=== PATIENT | male | born 1945 | race Caucasian/White ===

== ENCOUNTER → 2017-02-19 | Outpatient (CLI) | payer OTHER, MEDICAID | LOC: FIMAGING 16:21 | PROVIDERS: ATTEND Family Medicine | DX: I82.431 Acute embolism and thrombosis of right popliteal vein (principal) ==

== ENCOUNTER → 2017-07-15 | Outpatient (CLI) | payer OTHER, MEDICAID | LOC: FIMAGING 14:59 | PROVIDERS: ATTEND Internal Medicine Hematology & Oncology | DX: Z13.6 Encounter for screening for cardiovascular disorders (principal) ==

== ENCOUNTER → 2017-07-23 | Outpatient (CLI) | payer OTHER, MEDICAID | LOC: BHFA 10:45 | PROVIDERS: ATTEND Internal Medicine Cardiovascular Disease | DX: I25.10 Atherosclerotic heart disease of native coronary artery without angina pectoris (principal); I50.9 Heart failure, unspecified; R60.9 Edema, unspecified ==

== ENCOUNTER → 2017-08-31 | Outpatient (CLI) | payer OTHER, MEDICAID | LOC: BHFA 13:00 | PROVIDERS: ATTEND Internal Medicine Cardiovascular Disease | DX: I25.10 Atherosclerotic heart disease of native coronary artery without angina pectoris (principal); I50.9 Heart failure, unspecified | CPT/HCPCS: 78452; 93017; A9500; J2785 ==

== ENCOUNTER 2017-09-21 12:13 | Inpatient (IN) | payer OTHER, MEDICAID ==
[2017-09-21] MEDS ORDERED: ASPIRIN EC 325 MG TAB PO ONE (12:27)
[2017-09-21] MEDS ORDERED: FAMOTIDINE 20 MG TAB PO ONE (12:27)
[2017-09-21] MEDS ORDERED: diphenhydrAMINE 25 MG CAP PO ONE (12:27)
[2017-09-21] MEDS ORDERED: DIAZEPAM 5 MG TAB PO ONE (12:27)
[2017-09-21] MEDS ORDERED: NS 1,000 ML IV ONE (12:27)
--- NOTE | 2017-09-21 12:50 | CPEKG ---
Heart Rate: 46 RR Interval: 1304 P-R Interval: 260 QRSD Interval: 176 QT Interval: 532 QTC Interval: 466 P [place]: -16 QRS [place]: -35 T Wave [place]: 146 EKG Severity - ABNORMAL ECG - EKG Impression: SINUS BRADYCARDIA EKG Impression: FIRST DEGREE AV BLOCK EKG Impression: LEFT BUNDLE BRANCH BLOCK Electronically Signed By: Maksim Bach 21-Sep-2017 15:00:00
[2017-09-21 13:14] LABS: INR 1.03 (0.83-1.16); PROTIME(PATIENT) 13.7 SEC (12.0-15.0)
[2017-09-21 13:32] LABS: PLATELET COUNT 118 10^3/uL (150-400)
--- NOTE | 2017-09-21 13:57 | PDPROPOC ---
Sedation Plan of Care Sedation Plan of Care: vital signs stable, mental status noted, patient educated of risks, benefits, alternatives, patient can tolerate sedation ASA Classification: ASA 2 Planned drugs: fentanyl, midazolam Mallampati Score: Class 1 Mallampati Reference Image: Patient passed 3-3-2 rule?: Yes
--- NOTE | 2017-09-21 13:59 | PDGENHP ---
History & Physical Chief Complaint: Cardiac catheterization History of Present Illness: 72-year-old male here for cardiac catheterization last performed by me many years ago. He is currently not experiencing chest pain shortness of breath PND orthopnea. Relevant Physical Exam: 130/70, 70,. No JVP. Chest is clear to auscultation percussion. Cardiac exam reveals a regular rate and rhythm. Abdomen is soft nontender with good bowel sounds. Extremities are free of edema. Radial pulses are +2 and equal. Neurological he is alert and oriented with normal mood and affect. No facial dissymmetry. Skin no rash. Cardiorespiratory Assessment: No contraindications to cardiac catheterization identified today. Plan for diagnostic procedure. Right radial artery approach. Risks and benefits were discussed will proceed.
[2017-09-21] MEDS ORDERED: LIDOCAINE 1% 300 MG/30 ML SDV ONE (14:36)
[2017-09-21] MEDS ORDERED: ATROPINE SULFATE 1 MG/10 ML SYR ONE (14:37)
[2017-09-21] MEDS ORDERED: HEPARIN 10,000 UNIT/10 ML MDV (1,000 UNIT/ML) ONE (14:37)
[2017-09-21] MEDS ORDERED: MIDAZOLAM 2 MG/2 ML VIAL ONE (14:37)
[2017-09-21] MEDS ORDERED: IOPAMIDOL (ISOVUE-370) 150 ML BTL IV ONE (14:37)
[2017-09-21] MEDS ORDERED: fentaNYL 100 MCG/2 ML INJ ONE (14:37)
[2017-09-21] MEDS ORDERED: VERAPAMIL 5 MG/2 ML VIAL ONE (14:37)
[2017-09-21] MEDS ORDERED: NITROGLYCERIN 0.4 MG BTL SL PRN (15:03)
--- NOTE | 2017-09-21 15:09 | PDDXCAT ---
Diagnostic Cath Note - . Date: 09/21/17 Methods Analyst: Barak High-risk criteria on non-invasive testing: severe resting left ventricular dysfunction (LVEF<35%) - Procedure Access: right wrist Procedure: left heart catheterization, coronary angiography, left ventriculogram - Materials Left Heart Cath size: 5F Left Heart Cath materials: JL4.0, pigtail, other (Snyder 4) - Findings-Left Heart Catheterization LM: Calcified but unobstructed LAD: Diffuse atheroma the proximal vessel with a widely patent prior stent. 90 % stenosis after the principal diagonal overall long distance. 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 RCA: Dominant: Proximal stent widely patent. 10% stenosis after the stent. Ramus: 90% ostial stenosis. EDP: 10 mm of mercury LVEF: 20% with global hypokinesis more pronounced in the anterior apical segments Complications: None Estimated blood loss: <50ml Closure method: TR Band Assessment: Severe LAD, proximal ramus stenosis associated with severe LV dysfunction EF of 20%. Widely patent RCA stent. Plan: Surgical consultation for coronary artery bypass grafting in the setting of proximal ramus disease, LAD disease associated with severe LV dysfunction. Considerations for high risk PCI of turned down for surgery. Would consider rotational atherectomy of the proximal ramus and LAD. Patient Problems: Problems Problem Status Onset Osteoarthritis of knee Acute
[2017-09-21] MEDS: ESCITALOPRAM OXALATE 10 MG TAB PO SCH (20:38)
[2017-09-21] MEDS: CARVEDILOL 25 MG TAB PO SCH (20:39)
[2017-09-21] MEDS: LISINOPRIL 10 MG TAB PO SCH (20:39)
[2017-09-21] MEDS ORDERED: NON-FORMULARY NEW DRUG (Escitalopram Oxalate [Lexapro] 20 MG) PO SCH (21:00)
[2017-09-21] MEDS ORDERED: CLOPIDOGREL BISULFATE 75 MG TAB PO SCH (21:00)
[2017-09-21] MEDS ORDERED: ATORVASTATIN CALCIUM 40 MG TAB PO SCH (21:00)
[2017-09-22] MEDS: LEVOTHYROXINE 75 MCG TAB PO SCH (05:34)
--- NOTE | 2017-09-22 09:10 | ASMTCASEMG ---
Living Arrangements What is your living Answers: Alone arrangement? Who do you live with? Type Of Residence What kind of residence do Answers: Apartment you live in? Discharge Plan Comments Coordination Status Comments Notes: Pt is a 72 y/o man admitted for a cardiac cath. Pt will most likely d/c independent when medically stable. No therapies ordered at this time. Pt may have outpatient cardiac rehab. CM available for changes. Plan: Independent Date Signed: 09/22/2017 09:10 AM Electronically Signed By:CONOR Lakrin
[2017-09-22] MEDS: CARVEDILOL 25 MG TAB PO SCH ×2 (09:29→17:32)
--- NOTE | 2017-09-22 09:54 | PDCARPN ---
Cardiology Progress Note Chief Complaint: worsening ICM/ abn MPI Assessment/Plan: Assessment: 72 y/o M PMH cardiac arrest 2006 with subsequent pCI p/mLAD, PCI RCA 2007, ICM, htn, dyslipidemia, recent DVT (has finished Warfarin). Recently seen in office of [facility]. Echo ordered showed EF decrement from 40-45% to 30%. MPI ordered showed large sized severe defect which was mostly reversible. LHC yesterday with Dr. Cancino showed 90% ostial RI abd 90% mLAD with critical ostial stenosis at 1st septal exerciser horse. EF 20%. Options reviewed and patient evaluated by CT surgery. #. severe multivessel CAD: plans for CABG 09/23 increase statin therapy #. ICM: appears euvolemic continue ACEi and BB on low dose Lasix #. htn: BPs are quite elevated will increase Amlodipine #. bradycardia: reduce Carvedilol dosing #. DVT ppx: deferred as patient to have OHS 09/23 #. LOS: inpatient due to need for surgery Plan: - CTS evaluated for surgery and plans for OHS tomorrow 09/22/17 09:45 Subjective: Feels well. No swelling, dyspnea, cp, palps. Objective: Vital Signs (8 Hrs) Temp Pulse Resp BP Pulse Ox 09/22/17 08:00 42 L 15 164/80 H 94 09/22/17 04:00 97.8 F 44 L 17 157/81 H 96 Intake/Output (24 Hrs) 09/21/17 09/22/17 09/23/17 05:59 05:59 05:59 Intake Total 100 Balance 100 Intake: Oral (ml) 100 Other: Weight 90.3 kg 89.358 kg Number of Voids Toilet 2 Result Diagrams: 09/21/17 12:50 09/21/17 12:50 EKG: personally interpreted SB, LBBB, 1st deg AVB Telemetry: reviewed/ SR - Physical Exam Constitutional: no apparent distress Eyes: PERRL Cardiovascular: regular rate and rhythm, no murmurs Respiratory: clear to auscultate bilat, no crackles Gastrointestinal: normoactive bowel sounds, no tenderness Genitourinary: No silva in urethra Neurologic: AAOx3 Psychiatric: cooperative, interactive ICD10 Worksheet Patient Problems: Problems Problem Status Onset Osteoarthritis of knee Acute
[2017-09-22] MEDS: FUROSEMIDE 20 MG TAB PO SCH (10:23)
[2017-09-22] MEDS: ASPIRIN 325 MG TAB PO SCH (10:23)
[2017-09-22] MEDS: buPROPion SR 150 MG TAB PO SCH (10:23)
[2017-09-22] MEDS: amLODIPine BESYLATE 5 MG TAB PO SCH (10:23)
--- NOTE | 2017-09-22 14:42 | PDMN ---
Medical Necessity Medical necessity: Change to IP, as of , per BEHAVIORAL ASSISTANT; los >2 mn for ongoing management of severe multivessel CAD, worsening ischemic cardiomyopathy, HTN & bradycardia; admit for CABG; hx cardiac arrest, DVT, HTN, PCI; per progress note & order 09/22/17
--- NOTE | 2017-09-22 16:26 | PDGENHP ---
History and Physical - Chief Complaint abnormal stress trest, progressive CAD - History of Present Illness 72M with abnormal nuclear stress test and progressive CAD for urgent surgical revascularization. The pt has a h/o of remote CAD stenting. Recent ECHO showed a reduced LVEF of 31%. The pt denies weakness, syncope, CP, chest palpitations, SOB, PND, orthopnea, abd pain, urinary issues, or LE swelling. He has a h/o HTN , DVT, and knee issues requiring BL knee replacements. He denies tobacco, ETOH, or illicit drug abuse. History Information - Allergies/Home Medication List Allergies/Adverse Reactions: No Known Allergies Allergy (Unverified 11/27/12 18:46) Home Medications: Aspirin [Aspirin 325 mg (*)] 325 mg PO DAILY 07/22/15 [Last Taken 09/20/17] Carvedilol [Coreg (*)] 25 mg PO BIDMEAL 07/22/15 [Last Taken 09/21/17] Clopidogrel Bisulfate [Plavix (*)] 75 mg PO HS 07/22/15 [Last Taken 09/20/17] Furosemide [Lasix 20 MG (*)] 10 mg PO DAILY 07/22/15 [Last Taken 09/21/17] Levothyroxine [Synthroid 75 mcg (*)] 75 mcg PO DAILY06 07/22/15 [Last Taken ] Lisinopril [Zestril 10 mg (*)] 10 mg PO HS 07/22/15 [Last Taken 09/20/17] amLODIPine BESYLATE [Norvasc 2.5 mg (*)] 2.5 mg PO DAILY 07/22/15 [Last Taken ] Atorvastatin Calcium [Lipitor 40 mg (*)] 40 mg PO HS 09/21/17 [Last Taken ] Escitalopram Oxalate [Lexapro] 20 mg PO HS 09/21/17 [Last Taken 09/20/17] buPROPion SR [Wellbutrin 150mg SR (*)] 150 mg PO DAILY 09/21/17 [Last Taken ] I have personally reviewed and updated: medical history, social history, surgical history - Past Medical History Additional medical history: as per HPI - Surgical History Additional surgical history: as per HPI - Social History Smoking Status: Never smoked Alcohol Use: None Drug Use: None Review of Systems Review of Systems: ROS: 10pt was reviewed & negative except for what was stated in HPI & below Physical Exam Physical Exam: Temp Pulse Resp BP Pulse Ox 36.4 C 48 L 16 154/81 H 93 09/22/17 15:55 09/22/17 15:55 09/22/17 15:55 09/22/17 15:55 09/22/17 15:55 O2 (L/minute) 13 Constitutional: no apparent distress, appears nourished, not in pain Eyes: anicteric sclera Ears, Nose, Mouth, Throat: moist mucous membranes, hearing normal Cardiovascular: regular rate and rhythym, no murmur, rub, or gallop Respiratory: no respiratory distress, no rales or rhonchi, clear to auscultation Gastrointestinal: soft, non-tender abdomen Genitourinary: no bladder fullness Skin: warm, normal color Musculoskeletal: full muscle strength Neurologic: sensation intact bilaterally Psychiatric: interacting appropriately, not anxious, not encephalopathic, thought process linear Lab Data & Imaging Review 09/21/17 12:50 09/21/17 12:50 WBC 5.20 10^3/uL (3.80-9.50) 09/21/17 12:50 RBC 4.86 10^6/uL (4.40-6.38) 09/21/17 12:50 Hgb 15.9 g/dL (13.7-17.5) 09/21/17 12:50 Hct 46.7 % (40.0-51.0) 09/21/17 12:50 MCV 96.1 fL (81.5-99.8) 09/21/17 12:50 MCH 32.7 pg (27.9-34.1) 09/21/17 12:50 MCHC 34.0 g/dL (32.4-36.7) 09/21/17 12:50 RDW 13.5 % (11.5-15.2) 09/21/17 12:50 Plt Count 118 10^3/uL (150-400) L 09/21/17 12:50 MPV 11.9 fL (8.7-11.7) H 09/21/17 12:50 Neut % (Auto) 71.1 % (39.3-74.2) 09/21/17 12:50 Lymph % (Auto) 16.2 % (15.0-45.0) 09/21/17 12:50 [place] % (Auto) 9.2 % (4.5-13.0) 09/21/17 12:50 Eos % (Auto) 2.7 % (0.6-7.6) 09/21/17 12:50 Baso % (Auto) 0.6 % (0.3-1.7) 09/21/17 12:50 Nucleat RBC Rel Count 0.0 % (0.0-0.2) 09/21/17 12:50 Absolute Neuts (auto) 3.70 10^3/uL (1.70-6.50) 09/21/17 12:50 Absolute Lymphs (auto) 0.84 10^3/uL (1.00-3.00) L 09/21/17 12:50 Absolute Monos (auto) 0.48 10^3/uL (0.30-0.80) 09/21/17 12:50 Absolute Eos (auto) 0.14 10^3/uL (0.03-0.40) 09/21/17 12:50 Absolute Basos (auto) 0.03 10^3/uL (0.02-0.10) 09/21/17 12:50 Absolute Nucleated RBC 0.00 10^3/uL (0-0.01) 09/21/17 12:50 Immature Gran % 0.2 % (0.0-1.1) 09/21/17 12:50 Immature Gran # 0.01 10^3/uL (0.00-0.10) 09/21/17 12:50 PT 13.7 SEC (12.0-15.0) 09/21/17 12:50 INR 1.03 (0.83-1.16) 09/21/17 12:50 Sodium 144 mEq/L (135-145) 09/21/17 12:50 Potassium 4.5 mEq/L (3.3-5.0) 09/21/17 12:50 Chloride 109 mEq/L (97-110) 09/21/17 12:50 Carbon Dioxide 22 mEq/l (22-31) 09/21/17 12:50 Anion Gap 13 mEq/L (8-16) 09/21/17 12:50 BUN 23 mg/dL (7-23) 09/21/17 12:50 Creatinine 1.3 mg/dL (0.7-1.3) 09/21/17 12:50 Estimated GFR 54 09/21/17 12:50 Glucose 89 mg/dL (70-100) 09/21/17 12:50 Calcium 8.6 mg/dL (8.5-10.4) 09/21/17 12:50 Magnesium 2.2 mg/dL (1.6-2.3) 09/21/17 12:50 Triglycerides 75 mg/dL (40-150) 09/21/17 12:50 Cholesterol 103 mg/dL (140-220) L 09/21/17 12:50 Cholesterol Risk Factr 0.4 (0.2-1.0) 09/21/17 12:50 LDL Cholesterol, Calc 49 mg/dL (80-100) L 09/21/17 12:50 LDL Risk Factor 0.6 (0.2-1.0) 09/21/17 12:50 VLDL Cholesterol 15 mg/dL (8-25) 09/21/17 12:50 Non-HDL Cholesterol 64 mg/dL (90-129) L 09/21/17 12:50 HDL Cholesterol 39 mg/dL (40-65) L 09/21/17 12:50 LDL/HDL Ratio 1.26 RATIO (1.00-3.64) 09/21/17 12:50 Cholesterol/HDL Ratio 2.64 RATIO (1.00-4.97) 09/21/17 12:50 Assessment & Plan Assessment: 72M with severe CAD Plan: CABG 09/[address] Siddiqui Consents in AM CXR, carotid US, and labs pending
[2017-09-22] MEDS ORDERED: CHLORHEXIDINE GLUC HIBICLENS 118 ML BTL TP SCH (21:00)
[2017-09-22] MEDS: ESCITALOPRAM OXALATE 10 MG TAB PO SCH (21:08)
[2017-09-22] MEDS: ATORVASTATIN CALCIUM 40 MG TAB PO SCH (21:09)
[2017-09-22] MEDS: LISINOPRIL 10 MG TAB PO SCH (21:09)
[2017-09-23] MEDS: LEVOTHYROXINE 75 MCG TAB PO SCH (06:08)
[2017-09-23] MEDS: CARVEDILOL 25 MG TAB PO SCH (08:21)
[2017-09-23] MEDS: ASPIRIN 325 MG TAB PO SCH (08:21)
[2017-09-23] MEDS: buPROPion SR 150 MG TAB PO SCH (08:21)
[2017-09-23] MEDS: amLODIPine BESYLATE 5 MG TAB PO SCH (08:21)
[2017-09-23] MEDS: FUROSEMIDE 20 MG TAB PO SCH (08:22)
[2017-09-23] MEDS ORDERED: PAPAVERINE HCL 60 MG/2 ML SDV ONE (09:19)
[2017-09-23] MEDS ORDERED: VERAPAMIL 5 MG/2 ML VIAL ONE (09:19)
[2017-09-23] MEDS ORDERED: MINERAL OIL 10 ML VIAL ONE (09:19)
[2017-09-23] MEDS ORDERED: PHENYLEPHRINE HCL 50 MG in NS 250 ML IV ONE (10:00)
[2017-09-23] MEDS ORDERED: MUPIROCIN 2% 22 GM OINT NS ONE (10:00)
[2017-09-23] MEDS ORDERED: VERAPAMIL 5 MG, NITROGLYCERIN 2.5 MG, HEPARIN 500 UNIT, SODIUM BICARBONATE 0.2 MEQ in L... MISC ONE (10:00)
[2017-09-23] MEDS ORDERED: NOREPINEPHRINE BITARTRATE 16 MG in NS 250 ML IV ONE (10:00)
[2017-09-23] MEDS ORDERED: niCARdipine/NACL 200 ML IV SCH (10:00)
[2017-09-23] MEDS ORDERED: SODIUM BICARBONATE 20 MEQ, LIDOCAINE 1% 10 ML in NORMOSOL-R 1,000 ML MISC ONE (10:00)
[2017-09-23] MEDS ORDERED: AMINOCAPROIC ACID 5 GM/20 ML VIAL IV ONE (10:00)
[2017-09-23] MEDS ORDERED: ceFAZolin 2 GM/SWFI 2 GM/20 ML SYR IVP ONE (10:00)
[2017-09-23] MEDS ORDERED: CITRATE DEXTROSE SOLN 500 ML BAG MISC ONE (10:00)
[2017-09-23] MEDS ORDERED: INSULIN REGULAR HUMAN 100 UNIT in NS 100 ML IV ONE (10:00)
[2017-09-23] MEDS ORDERED: ceFAZolin 2 GM in D5W 100 ML IV ONE (10:00)
[2017-09-23] MEDS ORDERED: MANNITOL 25% 12.5 GM/50 ML VIAL IVP ONE (10:00)
--- NOTE | 2017-09-23 10:04 | ASMTCMCOM ---
CM Note CM Note Notes: 09/23/2017 Case Management Note Met w/pt and sister Ioana [phone] to answer questions about potential discharge options. Pt is current with [facility]. Contacted pt RN Dolly at [phone]. Faxed referral to [facility]. Dolly has been his RN for 6 years and manages his medications. If pt requires SNF rehab sister Ioana wants to be involved in choosing a facility. [facility], [facility] and [facility] second. Discussed difficulties getting a bed a [facility]. Will await PT evals before sending any referrals to SNF. Case Management d/c poc: to be determined. Case Management to follow. Date Signed: 09/23/2017 10:03 AM Electronically Signed By:Yara Aguilar RN
[2017-09-23] MEDS ORDERED: LR 1,000 ML IV ONE (11:08)
[2017-09-23] MEDS ORDERED: ALBUMIN 5% 250 ML BOTTLE IV ONE ×2 (11:14→16:06)
[2017-09-23] MEDS ORDERED: PROTAMINE SULFATE 50 MG/5 ML VIAL IVP ONE (11:14)
[2017-09-23] MEDS ORDERED: ceFAZolin 2 GM/DEXTROSE 100 ML IV ONE (11:15)
[2017-09-23] MEDS ORDERED: MILRINONE/DEXTROSE/100 ML BAG IV ONE (11:15)
[2017-09-23] MEDS ORDERED: NA BICARBONATE 50 MEQ/50 ML VIAL ONE (11:15)
[2017-09-23] MEDS ORDERED: CALCIUM CHLORIDE 1 GM/10 ML INJ ONE (11:15)
[2017-09-23] MEDS ORDERED: LIDOCAINE 2% 100 MG/5 ML SYR ONE ×2 (11:15→12:11)
[2017-09-23] MEDS ORDERED: ADENOSINE 6 MG/2 ML VIAL ONE (11:16)
[2017-09-23] MEDS ORDERED: DOPamine/DEXTROSE/250 ML BAG IV ONE (11:16)
[2017-09-23] MEDS ORDERED: CITRATE DEXTROSE SOLN 500 ML BAG ONE (11:16)
[2017-09-23] MEDS ORDERED: niCARdipine/NACL/200 ML BAG IV ONE (11:16)
[2017-09-23] MEDS ORDERED: AMIODARONE HCL 150 MG/3 ML VIAL ONE (11:16)
[2017-09-23] MEDS ORDERED: HEPARIN 10,000 UNIT/10 ML MDV (1,000 UNIT/ML) ONE (11:16)
[2017-09-23] MEDS ORDERED: ceFAZolin 1 GM VIAL ONE (11:17)
[2017-09-23] MEDS ORDERED: methylPREDNISolone SOD SUCC 1 GM/8 ML VIAL ONE (11:17)
[2017-09-23] MEDS ORDERED: MAGNESIUM SULFATE 1 GM/2 ML VIAL ONE (11:17)
[2017-09-23] MEDS ORDERED: NITROGLYCERIN/D5W 50 MG/250 ML BOTTLE IV ONE (11:17)
[2017-09-23] MEDS ORDERED: MIDAZOLAM 2 MG/2 ML VIAL IVP ONE (12:03)
--- NOTE | 2017-09-23 12:05 | PDANEPAE ---
ANE History of Present Illness 3v CAD and decreased EF s/f CABG ANE Past Medical History - Cardiovascular History Hx Hypertension: Yes Hx Arrhythmias: No Hx Chest Pain: No Hx Coronary Artery / Peripheral Vascular Disease: Yes Hx CHF / Valvular Disease: No Hx Palpitations: No Cardiovascular History Comment: HYPERLIPIDEMIA. CARDIAC STENTS. cardiac arrest 04/2007 - Pulmonary History Hx COPD: No Hx Asthma/Reactive Airway Disease: No Hx Recent Upper Respiratory Infection: No Hx Oxygen in Use at Home: No Hx Sleep Apnea: Yes Sleep Apnea Screening Result - Last Documented: Positive - Neurologic History Hx Cerebrovascular Accident: No Hx Seizures: No Hx Dementia: No - Endocrine History Hx Diabetes: No Endocrine History Comment: HYPOTHYROID - Renal History Hx Renal Disorders: Yes Renal History Comment: URINARY DRIBBLING - Liver History Hx Hepatic Disorders: No - Neurological & Psychiatric Hx Hx Neurological and Psychiatric Disorders: Yes Neurological / Psychiatric History Comment: DEPRESSION - Cancer History Hx Cancer: No - Congenital Disorder History Hx Congenital Disorders: No - GI History Hx Gastrointestinal Disorders: No - Other Health History Other Health History: NEG - Chronic Pain History Chronic Pain: No (left knee) - Surgical History Prior Surgeries: right tka with dr pro 08/08/14. CARDIAC STENTS 2006, 2007. FX. LEG ANE Review of Systems Review of Systems: - Exercise capacity METS (RN): 3 METS ANE Patient History - Allergies Allergies/Adverse Reactions: No Known Allergies Allergy (Unverified 11/27/12 18:46) - Home Medications Home medications: home medication list seen and reviewed Home Medications: Aspirin [Aspirin 325 mg (*)] 325 mg PO DAILY 07/22/15 [Last Taken 09/20/17] Carvedilol [Coreg (*)] 25 mg PO BIDMEAL 07/22/15 [Last Taken 09/21/17] Clopidogrel Bisulfate [Plavix (*)] 75 mg PO HS 07/22/15 [Last Taken 09/20/17] Furosemide [Lasix 20 MG (*)] 10 mg PO DAILY 07/22/15 [Last Taken 09/21/17] Levothyroxine [Synthroid 75 mcg (*)] 75 mcg PO DAILY06 07/22/15 [Last Taken ] Lisinopril [Zestril 10 mg (*)] 10 mg PO HS 07/22/15 [Last Taken 09/20/17] amLODIPine BESYLATE [Norvasc 2.5 mg (*)] 2.5 mg PO DAILY 07/22/15 [Last Taken ] Atorvastatin Calcium [Lipitor 40 mg (*)] 40 mg PO HS 09/21/17 [Last Taken ] Escitalopram Oxalate [Lexapro] 20 mg PO HS 09/21/17 [Last Taken 09/20/17] buPROPion SR [Wellbutrin 150mg SR (*)] 150 mg PO DAILY 09/21/17 [Last Taken ] - NPO status NPO Status: no food or drink >8 hours NPO Since - Liquids (Date): 09/22/17 NPO Since - Liquids (Time): 23:55 NPO Since - Solids (Date): 09/23/17 NPO Since - Solids (Time): 23:55 - Anes Hx Anes Hx: no prior problems - Smoking Hx Smoking Status: Never smoked - Alcohol Use Alcohol Use: None - Family Anes Hx Family Anes Hx: none Family Hx Anesthesia Complications: NEG ANE Labs/Vital Signs - Labs Result Diagrams: 09/21/17 12:50 09/21/17 12:50 - Vital Signs Blood Pressure: 119/81 Heart Rate: 85 Respiratory Rate: 14 O2 Sat (%): 95 Height: 182.88 cm Weight: 86.001 kg ANE Physical Exam - Airway Neck exam: decreased ROM Mouth exam: poor dentition - Pulmonary Pulmonary: no respiratory distress - Cardiovascular Cardiovascular: regular rate and rhythym - ASA Status ASA Status: III ANE Anesthesia Plan Anesthesia Plan: general endotracheal anesthesia Lines/Monitors: arterial line, central line, ALEJANDRO
[2017-09-23] MEDS ORDERED: REMIFENTANIL HCL 1 MG VIAL ONE (12:07)
[2017-09-23] MEDS ORDERED: PROPOFOL/EMULSION 500 MG/50 ML BOTTLE IV ONE (12:07)
[2017-09-23] MEDS ORDERED: MIDAZOLAM 2 MG/2 ML VIAL ONE (12:07)
[2017-09-23] MEDS ORDERED: fentaNYL 250 MCG/5 ML INJ ONE (12:07)
[2017-09-23] MEDS ORDERED: PHENYLEPHRINE HCL 100 MCG/ML SYR ONE (12:10)
[2017-09-23] MEDS ORDERED: ePHEDrine SULFATE 25 MG/5 ML SYR ONE ×2 (12:10→16:21)
[2017-09-23] MEDS ORDERED: ROCURONIUM 100 MG/10 ML VIAL ONE (12:10)
[2017-09-23] MEDS ORDERED: ONDANSETRON 4 MG/2 ML VIAL ONE (12:11)
[2017-09-23] MEDS ORDERED: DEXAMETHASONE 4 MG/ML VIAL ONE ×2 (12:11)
[2017-09-23] MEDS ORDERED: DEXMEDETOMIDINE HCL 400 MCG in NS 100 ML IV SCH (12:30)
[2017-09-23] MEDS ORDERED: SUGAMMADEX SODIUM 200 MG/2 ML VIAL IVP ONE (15:55)
[2017-09-23] MEDS ORDERED: fentaNYL 100 MCG/2 ML INJ ONE (15:55)
[2017-09-23] MEDS ORDERED: MAGNESIUM SULF 2 GM/WATER 50 ML BAG IV ONE (16:07)
[2017-09-23] MEDS ORDERED: PANTOPRAZOLE SODIUM 40 MG VIAL IVP ONE ×2 (16:17→19:45)
[2017-09-23] MEDS ORDERED: ALBUMIN 5% 250 ML IV PRN (16:17)
[2017-09-23] MEDS ORDERED: METOCLOPRAMIDE 10 MG/2 ML VIAL IVP PRN (16:17)
[2017-09-23] MEDS ORDERED: ACETAMINOPHEN 650 MG SUPP PR PRN (16:17)
[2017-09-23] MEDS ORDERED: POLYETHYLENE GLYCOL 3350 17 GM PKT PO PRN (16:17)
[2017-09-23] MEDS ORDERED: ACETAMINOPHEN 325 MG TAB PO PRN (16:17)
[2017-09-23] MEDS ORDERED: POTASSIUM Cl (KCl) 50 ML IV PRN (16:17)
[2017-09-23] MEDS ORDERED: ONDANSETRON 4 MG/2 ML VIAL IVP PRN (16:17)
[2017-09-23] MEDS ORDERED: MAGNESIUM SULF 2 GM/WATER 50 ML IV ONE (16:17)
[2017-09-23] MEDS ORDERED: MAGNESIUM HYDROXIDE 30 ML UDCUP PO PRN (16:17)
[2017-09-23] MEDS ORDERED: ONDANSETRON DISINTEGRATING 4 MG TAB PO PRN (16:17)
[2017-09-23] MEDS ORDERED: D50W 25 GM/50 ML SYR IVP PRN (16:17)
[2017-09-23] MEDS ORDERED: SODIUM CL NASAL 45 ML BTL EACHNARE PRN (16:17)
[2017-09-23] MEDS ORDERED: BISACODYL 10 MG SUPP PR PRN (16:17)
[2017-09-23] MEDS ORDERED: MEPERIDINE 25 MG/0.5 ML AMP IVP PRN (16:17)
[2017-09-23] MEDS ORDERED: CEPACOL LOZENGE PO PRN (16:17)
[2017-09-23] MEDS ORDERED: LACTULOSE 20 GM/30 ML UDCUP PO PRN (16:17)
[2017-09-23] MEDS ORDERED: NS 1,000 ML IV SCH (16:30)
[2017-09-23] MEDS ORDERED: INSULIN REGULAR HUMAN 100 UNIT in NS 100 ML IV SCH (16:30)
[2017-09-23] MEDS ORDERED: ROCURONIUM 50 MG/5 ML VIAL ONE (16:33)
--- NOTE | 2017-09-23 16:40 | GOP ---
[f rep st] OPERATIVE REPORT DATE OF OPERATION: 09/23/2017 SURGEON: Thee Siddiqui DO VIDEO SYSTEM REPAIRER: Prasanth Whittington PA-C ANESTHESIOLOGIST: Kiran Hernandez MD PREOPERATIVE DIAGNOSIS: Ischemic cardiomyopathy with severe 2-vessel coronary artery disease. POSTOPERATIVE DIAGNOSIS: Ischemic cardiomyopathy with severe 2-vessel coronary artery disease. PROCEDURE PERFORMED: 1. Coronary artery bypass grafting x3 with left internal mammary artery to the 1st diagonal, sapheno us vein graft to the lateral circumflex, and saphenous vein graft with patch enlargement of the left anterior descending. 2. Ligate left atrial appendage. 3. Endoscopic vein harvest. FINDINGS: Patient was noted to have diminished LV function with ischemia noted in multiple distribut ions on the nuclear study. Diagnostic cath revealed high-grade 2-vessel disease involving the LAD an d circumflex. EF was approximately 20%. DESCRIPTION OF PROCEDURE: He was consented for surgery, brought to the operating room, intubated, mo nitoring lines were placed. He was prepped and draped in sterile classical manner. Sternotomy was p erformed. The mammary was harvested. It was a relatively small vessel with brisk flow. The aorta w as without calcification. Ejection fraction was approximately 20%-25% on transesophageal echo withou t valvular abnormality. He was heparinized, cannulated. Bypass was begun. A cardioplegic arrest wa s obtained with antegrade cardioplegia, retrograde cardioplegia, and hypothermia. Initially, his left atrial appendage was doubly ligated with suture ligation. We then proceeded with grafting a very large 3.2 mm circumflex with an excellent quality vein graft end-to-side, which was then brought off the ascending aorta. We then placed a mammary to a large good quality 2 mm diagonal and tacked that to the epicardium. We then proceeded with trying to expose an area in the LAD where it was graftable. It was heavily calcified throughout its course. Beyond the 2nd diagonal, we did an extended incision approximately 1 inch long in the artery in order to get good proximal and distal probable lumens and then did a patch grafting of the anastomosis with the vein graft, which was then brought proximally and anastomosed end-to-side to the vein graft to the circumflex. The cross-clamp was removed. Suctioned of the ascending aortic vent. Spontaneous cardiac activity w as noted to resume. The patient was easily rewarmed, weaned from bypass. Heparin was reversed with protamine. The cannula was removed and oversewn. 2 pacing wires, 2 pleural, 1 mediastinal drain wer e placed. Thymic fat and pericardium were closed. Chest was closed in standard fashion. The patien t was returned to ICU in stable condition. /[id number]/MODL
--- NOTE | 2017-09-23 17:36 | CPEKG ---
Heart Rate: 42 RR Interval: 1429 P-R Interval: 263 QRSD Interval: 182 QT Interval: 608 QTC Interval: 509 P [place]: 24 QRS [place]: -29 T Wave [place]: 202 EKG Severity - ABNORMAL ECG - EKG Impression: SINUS BRADYCARDIA EKG Impression: FIRST DEGREE AV BLOCK EKG Impression: LEFT BUNDLE BRANCH BLOCK Electronically Signed By: Ernesto Rodriguez 25-Sep-2017 07:02:48
[2017-09-23] MEDS: SENNOSIDES/DOCUSATE SODIUM TAB PO SCH (20:07)
[2017-09-23] MEDS: ESCITALOPRAM OXALATE 10 MG TAB PO SCH (21:33)
[2017-09-23] MEDS: ceFAZolin 2 GM/DEXTROSE 100 ML IV SCH (21:35)
[2017-09-23] MEDS: CHLORHEXIDINE GLUCONATE 15 ML UDL PO SCH (21:37)
[2017-09-23] MEDS: MUPIROCIN 2% 22 GM OINT NS SCH (21:38)
[2017-09-23] MEDS: FAMOTIDINE 20 MG/NACL 50 ML IV SCH (21:38)
[2017-09-23] MEDS: fentaNYL 100 MCG/2 ML INJ IVP PRN (22:43)
[2017-09-24] MEDS: fentaNYL 100 MCG/2 ML INJ IVP PRN ×3 (01:50→13:03)
[2017-09-24 04:16] LABS: PLATELET COUNT 70 10^3/uL (150-400)
[2017-09-24] MEDS: HEPARIN 5,000 UNIT/0.5 ML INJ SC SCH ×2 (05:30→16:34)
[2017-09-24] MEDS: LEVOTHYROXINE 75 MCG TAB PO SCH (05:30)
[2017-09-24] MEDS: ceFAZolin 2 GM/DEXTROSE 100 ML IV SCH ×3 (05:31→22:15)
--- NOTE | 2017-09-24 06:49 | SOAPPROG ---
SOAP Progress Note Assessment/Plan: Assessment: POD#1 Urgent CABG x 3 (DE LEON-D1, SV-LAD, SV-LCX), EVH LLE, prophylactic suture ligation left atrial appendage Sx progressive left sided CAD - s/p CABG. Hemodynamically stable without vasoactive support, dysrhythmias or backup pacing. Secondary prevention with ASA , BB as allowed by HR, and statin when eating well. ISCM, LVEF ~25% - Uneventful separation from CPB with preserved LV systolic fx. No sig volume overload. Staggered intro of heart failure meds as appropriate. Acute expected blood loss anemia - Stable. No transfusions required. Acute postoperative respiratory insufficiency - Hx chronic LLL atelectasis, possible MACY. Kept intubated overnight d/t hypoxemia and inc FiO2 needs. Improved ABG this am. Vent wean per pulmonary. CPAP, mucolytics and duonebs prn. Plan: Remove branden. Rapid vent wean to extubation. Blakes to bulb suction once extubated. Remove silva once extubated. RADIATION SAFETY OFFICER for clearance orals. Inc activity as tolerated. Possible tx to PCU later today. 09/24/17 06:47 Subjective: Awake and alert on the vent. Responds appropriately to commands. MAEE. Objective: Vital Signs Temp Pulse Resp BP Pulse Ox 37.2 C 51 L 22 H 157/67 H 92 09/24/17 06:00 09/24/17 06:00 09/24/17 06:00 09/24/17 06:00 09/24/17 06:00 Laboratory Results 09/24/17 04:10 09/24/17 04:10 09/23/17 09/24/17 09/25/17 05:59 05:59 05:59 Intake Total 450 786 Output Total 300 1595 Balance 150 -809 PT 13.7 SEC (12.0-15.0) 09/21/17 12:50 INR 1.03 (0.83-1.16) 09/21/17 12:50 Profound SB 40s early postop without hypotension. Rates into 50s this am. Robust SBPs. Vent FIO2 50%. Adequate UOP. CXR -> no PTX, hypoventilation, bibasilar atelectasis, mild pulm vasc congestion. No sig CTOP. Labs as expected. Physical Exam - Physical Exam General Appearance: alert, no apparent distress Respiratory: other (blakes x 3 y-d to pleurovac, serosang drainage, no air leak) Cardiac/Chest: regular rate, rhythm, bradycardia, other (Sternotomy CDI, Vwire intact) Abdomen: normal bowel sounds, non-tender, soft Skin: warm/dry Extremities: swelling (1+ gen), other (LLE thigh wrap intact) ICD10 Worksheet Patient Problems: Problems Problem Status Onset CAD (coronary artery disease) Acute S/P CABG x 3 Acute chronic disease mgmt/transitional care Acute Osteoarthritis of knee Acute
[2017-09-24] MEDS: FAMOTIDINE 20 MG/NACL 50 ML IV SCH (08:06)
[2017-09-24] MEDS: MUPIROCIN 2% 22 GM OINT NS SCH ×2 (08:30→22:14)
[2017-09-24] MEDS: SENNOSIDES/DOCUSATE SODIUM TAB PO SCH (09:00)
[2017-09-24] MEDS: CHLORHEXIDINE GLUCONATE 15 ML UDL PO SCH (09:59)
[2017-09-24] MEDS: PANTOPRAZOLE SODIUM 40 MG TAB PO SCH (10:00)
--- NOTE | 2017-09-24 14:09 | GCON ---
[f rep st] CONSULTATION PULMONARY CONSULT DATE OF CONSULTATION: 09/24/2017 HISTORY OF PRESENT ILLNESS: This patient is a 72-year-old male with a history of coronary artery dis ease, ischemic cardiomyopathy, and remote cardiac arrest who underwent a recent stress test as he com plained of increasing lower extremity edema and had a reduced ejection fraction on an echocardiogram. The stress test was abnormal, and he underwent cardiac catheterization showing multivessel disease and a low ejection fraction. He was taken to the operating room by Dr. Siddiqui where coronary artery b ypass grafting was performed on 3 vessels. A vein harvest was also performed, as well as left atrial appendage ligation. He tolerated the procedure well, the ejection fraction still thought to be abou t 30%. He was kept intubated overnight but did well, and his blood gases look good this morning and was activated fairly promptly without difficulty. At the time of my evaluation, he was able to speak in full sentences and discuss his course, though he was somewhat confused. Sister was with him, and we talked briefly about sleep symptoms, but he was uncertain if he had snoring or observed apneas in the past. REVIEW OF SYSTEMS: Otherwise negative. PAST MEDICAL HISTORY: Includes: 1. Coronary artery disease. 2. Ischemic cardiomyopathy. 3. Carotid artery disease. 4. Hypertension. 5. Hyperlipidemia. 6. Left bundle branch block. 7. Cardiac arrest in 2006. 8. DVT. PAST SURGICAL HISTORY: Includes a cardiac stent, knee surgery, and the recent coronary artery bypass graft. SOCIAL HISTORY: He is a nonsmoker. No alcohol or IV drug use. FAMILY HISTORY: Noncontributory. MEDICATIONS: At this time include [place], aspirin, Lipitor, Dulcolax, Wellbutrin, Ancef, Peridex, Pre cedex, Lexapro, Pepcid, fentanyl, insulin, Synthroid, Reglan, morphine, Zofran, Protonix, MiraLAX, Se nokot. PHYSICAL EXAM: VITAL SIGNS: He was afebrile. His blood pressure was 129/68, with respirations of 2 0, heart rate of 61, oxygen saturation 96% on 6 L nasal cannula. GENERAL: He was obese but was awak e and alert, oriented x2, but otherwise in no apparent distress and able to speak in full sentences w ithout using accessory muscles for breathing. HEENT: Pupils equally round and reactive to light, no nicteric and noninjected. Mucous membranes are moist, without erythema or exudate. NECK: Supple, w ithout adenopathy or jugular vein distention. LUNGS: Breath sounds were clear to auscultation bilat erally, though diminished. There was no wheezing. No pleural rubs. HEART: Regular rate and rhythm , without murmurs or gallops at time of my exam. ABDOMEN: Soft, nontender, nondistended, without he patosplenomegaly. EXTREMITIES: No clubbing, cyanosis, or edema. His incisions look clean and dry. SKIN: Otherwise warm and dry, without evidence of rash. LABORATORY DATA: Objective data includes a white count of 8.7, hematocrit 37, platelets of 70 and ri sing. Blood gas from last night showed a pH 7.38, pCO2 38, pO2 60, bicarb of 22, oxygen saturation 9 0% on 60%. Basic metabolic panel was normal this morning, except for a BUN of 33, and creatinine of 1.6. ASSESSMENT AND PLAN: 1. Hypoxic respiratory failure. There were concerns raised yesterday about difficulty oxygenating. His preop chest x-ray reported chronic left lower lobe atelectasis. On my exam, this was quite mild and not likely a contributing factor in his hypoxemia. This obviously improved substantially better today, and he was able to be extubated. Moving forward, we will have to encourage incentive spirome try and use early mobilization and oxygen to maintain a saturation greater than 90%. 2. Obstructive sleep apnea. This has not been diagnosed in this patient, though I do have mild susp icion that this is indeed the case. Would also fit with his mild atelectasis. I suggested to his si ster that he get an outpatient sleep study once he has recovered from his current surgery. 3. Acute kidney injury. This may be due to hypovolemia. He is making adequate urine output at this time. I think close followup would be necessary and watch fluid shifts. /[id number]/MODL
[2017-09-24] MEDS: ASPIRIN 81 MG CHEWABLE TAB PO SCH (15:05)
[2017-09-24] MEDS: buPROPion SR 150 MG TAB PO SCH (15:05)
[2017-09-24] MEDS ORDERED: traMADol 50 MG TAB PO PRN (19:00)
[2017-09-24] MEDS: ESCITALOPRAM OXALATE 10 MG TAB PO SCH (20:44)
[2017-09-24] MEDS ORDERED: SENNOSIDES/DOCUSATE SODIUM TAB PO PRN (21:00)
[2017-09-24] MEDS: HYDROCODONE/APAP 5/325 TAB PO PRN (22:53)
[2017-09-25] MEDS: LEVOTHYROXINE 75 MCG TAB PO SCH (05:36)
[2017-09-25] MEDS: HYDROCODONE/APAP 5/325 TAB PO PRN ×2 (05:36→14:53)
[2017-09-25] MEDS: ceFAZolin 2 GM/DEXTROSE 100 ML IV SCH (05:36)
--- NOTE | 2017-09-25 07:37 | SOAPPROG ---
SOAP Progress Note Assessment/Plan: Assessment: POD#2 Urgent CABG x 3 (DE LEON-D1, SV-LAD, SV-LCX), EVH LLE, prophylactic suture ligation left atrial appendage Sx progressive left sided CAD - s/p CABG. Hemodynamically stable without vasoactive support, dysrhythmias or backup pacing. Secondary prevention with ASA , BB as allowed by HR, and statin when eating well. ISCM, LVEF ~25% - Uneventful separation from CPB with preserved LV systolic fx. No sig volume overload. Staggered intro of heart failure meds as appropriate. Acute expected blood loss anemia - Stable. No transfusions required. Acute postoperative respiratory insufficiency - Hx chronic LLL atelectasis, possible MACY. Kept intubated overnight d/t hypoxemia and inc FiO2. Successfully extubated POD#1. CPAP, mucolytics and duonebs prn. Plan: Remove ant med and rt pl bryan. Resume coreg at 3.125 mg BID. Trial CPAP during sleep. Inc activity as tolerated. 09/25/17 07:35 Subjective: Feels well. No acute concerns. Objective: Vital Signs Temp Pulse Resp BP Pulse Ox 37.1 C 65 16 131/76 H 89 L 09/25/17 02:39 09/25/17 03:05 09/25/17 03:05 09/25/17 03:05 09/25/17 03:05 Laboratory Results 09/25/17 05:41 09/25/17 05:41 09/24/17 09/25/17 09/26/17 05:59 05:59 05:59 Intake Total 786 520 Output Total 1595 1460 Balance -809 -940 PT 13.7 SEC (12.0-15.0) 09/21/17 12:50 INR 1.03 (0.83-1.16) 09/21/17 12:50 HR consistently 60s w 1st degree AVB. Upward creeping SBP. Moderate suppl O2 needs w difficulty obtaining good tracing. No tachynpnea, inc WOB, orthopnea or splinting. Adequate fluid balance. CTOP dissipating. No further drop in plt count. Physical Exam - Physical Exam General Appearance: alert, no apparent distress Respiratory: decreased breath sounds (bases), other (blakes x 3 to bulb suction , serosang drainage) Cardiac/Chest: regular rate, rhythm, other (Sternotomy CDI. Vwires intact) Abdomen: non-tender, soft Skin: warm/dry Extremities: swelling (trace-1+ dependent), other (LLE venotomy CDI.) ICD10 Worksheet Patient Problems: Problems Problem Status Onset CAD (coronary artery disease) Acute S/P CABG x 3 Acute chronic disease mgmt/transitional care Acute Osteoarthritis of knee Acute
[2017-09-25] MEDS: PANTOPRAZOLE SODIUM 40 MG TAB PO SCH (08:37)
[2017-09-25] MEDS: CARVEDILOL 3.125 MG TAB PO SCH ×2 (08:37→19:07)
[2017-09-25] MEDS: MUPIROCIN 2% 22 GM OINT NS SCH (08:37)
[2017-09-25] MEDS: ASPIRIN 81 MG CHEWABLE TAB PO SCH (08:37)
[2017-09-25] MEDS: buPROPion SR 150 MG TAB PO SCH (08:37)
--- NOTE | 2017-09-25 14:25 | CPEKG ---
Heart Rate: 126 RR Interval: 476 QRSD Interval: 156 QT Interval: 384 QTC Interval: 557 QRS Stuart: -23 T Wave Stuart: 154 EKG Severity - ABNORMAL ECG - EKG Impression: ATRIAL FIBRILLATION EKG Impression: LEFT BUNDLE BRANCH BLOCK Electronically Signed By: Macario Kwan 27-Sep-2017 10:27:03
[2017-09-25] MEDS ORDERED: DILTIAZEM 125 MG in D5W 125 ML IV SCH (14:30)
[2017-09-25] MEDS: ESCITALOPRAM OXALATE 10 MG TAB PO SCH (20:41)
[2017-09-26] MEDS: LEVOTHYROXINE 75 MCG TAB PO SCH (06:02)
--- NOTE | 2017-09-26 07:49 | SOAPPROG ---
SOAP Progress Note Assessment/Plan: Assessment: POD#3 Urgent CABG x 3 (DE LEON-D1, SV-LAD, SV-LCX), EVH LLE, prophylactic suture ligation left atrial appendage Sx progressive left sided CAD - s/p CABG. 2 of 3 chest tubes out. Secondary prevention with ASA, statin, and BB as tolerated. ISCM, LVEF ~25% - Uneventful separation from CPB with preserved LV systolic fx. No vasoactive support. No sig volume overload. Staggered intro of heart failure meds as tolerated. Acute expected blood loss anemia - Stable. No transfusions required. Acute postoperative respiratory insufficiency - Hx chronic LLL atelectasis, possible MACY. Kept intubated overnight d/t hypoxemia and inc FiO2. Successfully extubated POD#1. Moderate but stable suppl O2 req. CPAP, mucolytics and duonebs prn. Postoperative atrial fibrillation - with CVR. Well tolerated. Started on dilt gtt. Insufficient BP to uptitrate. Transition to orals in progress. Antithrombotic prophylaxis with Eliquis for [id number] score of 4. Plan: Transition to oral dilt. Switch from coreg to metoprolol tartrate. Start Eliquis 2.5 mg BID. Colloid prn SBP < 90. Consider removal left pleural drain. Cont inc activity as tolerated. Dispo - SNF on Wed if medically stable. 09/26/17 07:43 Subjective: Doing ok. A bit breathless with activity but mobility improving overall. Min incisional discomfort. Sister to help w identifying suitable SNF. Objective: Vital Signs Temp Pulse Resp BP Pulse Ox 36.6 C 101 H 14 98/71 L 93 09/26/17 04:15 09/26/17 04:15 09/26/17 04:15 09/26/17 04:15 09/26/17 04:15 Laboratory Results 09/26/17 04:30 09/26/17 04:30 09/25/17 09/26/17 09/27/17 05:59 05:59 05:59 Intake Total 520 1067 Output Total 1460 555 Balance -940 512 PT 13.7 SEC (12.0-15.0) 09/21/17 12:50 INR 1.03 (0.83-1.16) 09/21/17 12:50 Persistent AF w CVR. SBPs marginal and UOP borderline. Wt decr. +2.3 kg overall. CXR -> hypovent, mild pulm vasc congestion, crisp rt CPA, mild left basilar atelectasis. CTOP approaching removal criteria. Plt count stable. Physical Exam - Physical Exam General Appearance: alert, no apparent distress Respiratory: lungs clear (grossly), other (Mitch to bulb suction, thin serosang drainage) Cardiac/Chest: irregularly irregular, other (Sternotomy CDI. V wire intact.) Abdomen: non-tender, soft Skin: warm/dry Extremities: swelling (trace), other (LLE venot CDI) ICD10 Worksheet Patient Problems: Problems Problem Status Onset CAD (coronary artery disease) Acute Postoperative atrial fibrillation Acute S/P CABG x 3 Acute chronic disease mgmt/transitional care Acute Osteoarthritis of knee Chronic
[2017-09-26] MEDS: CARVEDILOL 3.125 MG TAB PO SCH (10:36)
[2017-09-26] MEDS: ASPIRIN 81 MG CHEWABLE TAB PO SCH (10:36)
[2017-09-26] MEDS: PANTOPRAZOLE SODIUM 40 MG TAB PO SCH (10:36)
[2017-09-26] MEDS: buPROPion SR 150 MG TAB PO SCH (10:37)
[2017-09-26] MEDS: DILTIAZEM 30 MG TAB PO SCH ×2 (12:44→17:36)
--- NOTE | 2017-09-26 14:53 | ASMTCMCOM ---
CM Note CM Note Notes: Chart reviewed. Met with patient and his sister at length to discuss care alternatives for him at discharge. Ioana feel he would be best off going to inpatient rehab prior to going home to her residence for a period of time with HC services in place. We have discussed local options and she would prefer we do referral for [facility] and perhaps [facility]. Referrals placed via allscripts. I have encouraged Ioana to tour facilities. CM to follow Plan: To SNF rehab Date Signed: 09/26/2017 02:52 PM Electronically Signed By:Nellie Argueta RN
[2017-09-26] MEDS: METOPROLOL TARTRATE 25 MG TAB PO SCH (20:21)
[2017-09-26] MEDS: APIXABAN 2.5 MG TAB PO SCH (20:30)
[2017-09-26] MEDS: ESCITALOPRAM OXALATE 10 MG TAB PO SCH (20:30)
[2017-09-27] MEDS: DILTIAZEM 30 MG TAB PO SCH ×2 (00:15→05:56)
[2017-09-27] MEDS: LEVOTHYROXINE 75 MCG TAB PO SCH (05:56)
--- NOTE | 2017-09-27 07:38 | SOAPPROG ---
SOAP Progress Note Assessment/Plan: Assessment: POD#4 Urgent CABG x 3 (DE LEON-D1, SV-LAD, SV-LCX), EVH LLE, prophylactic suture ligation left atrial appendage Sx progressive left sided CAD - s/p CABG. Tubes out. Secondary prevention with ASA, statin, and BB as tolerated. ISCM, LVEF ~25% - Uneventful separation from CPB with preserved LV systolic fx. No vasoactive support. No sig volume overload. Staggered intro of heart failure meds as tolerated. Acute expected blood loss anemia - Stable. No transfusions required. Acute postoperative respiratory insufficiency - Hx chronic LLL atelectasis, possible MACY. Kept intubated night of surgery d/t hypoxemia and inc FiO2. Successfully extubated POD#1. Decreasing suppl O2 req. CPAP, mucolytics and duonebs prn. Postoperative paroxysmal atrial fibrillation - with CVR. Well tolerated. Conversion to SR on CCB. Adjunctive BB switched from coreg to metoprolol for better BP tolerance. Antithrombotic prophylaxis with Eliquis for [id number] score of 4. Plan: Remove Vwire. Stop dilt and resume norvasc tonight. Cont metoprolol tartrate 12.5 mg BID. Cont Eliquis 2.5 mg BID. Begin gentle diuresis. Lasix 20 mg IV x 1 today. Cont inc activity as tolerated. Dispo - SNF (?[facility]) tomorrow or 09/27/17 07:33 Subjective: Showered yest. Improving mobility and appetite. Min incisional discomfort. Comfortable going to SNF tomorrow. Objective: Vital Signs Temp Pulse Resp BP Pulse Ox 36.6 C 63 16 132/71 H 90 L 09/27/17 04:00 09/27/17 04:00 09/27/17 04:00 09/27/17 04:00 09/27/17 04:00 Laboratory Results 09/27/17 06:00 09/27/17 06:00 09/26/17 09/27/17 09/28/17 05:59 05:59 05:59 Intake Total 1067 225 Output Total 555 725 Balance 512 -500 PT 13.7 SEC (12.0-15.0) 09/21/17 12:50 INR 1.03 (0.83-1.16) 09/21/17 12:50 Back in SR yest afternoon. Rates into 60s and prolonged QTc noted. Cards suggest stop short acting dilt. Balanced I/Os Plt count stable. - Pending Discharge Pending Discharge Within 24 Hours: Yes Pending Discharge Date: 09/28/17 Pending Discharge Time: 11:00 Physical Exam - Physical Exam General Appearance: alert, no apparent distress Respiratory: lungs clear (grossly) Cardiac/Chest: regular rate, rhythm, other (Sternum grossly stable. Sternotomy CDI. V wire intact.) Abdomen: non-tender, soft Skin: warm/dry Extremities: swelling (trace), other (LLE venotomy CDI) ICD10 Worksheet Patient Problems: Problems Problem Status Onset CAD (coronary artery disease) Acute Postoperative atrial fibrillation Acute S/P CABG x 3 Acute chronic disease mgmt/transitional care Acute Osteoarthritis of knee Chronic
[2017-09-27] MEDS ORDERED: POTASSIUM CL 20 MEQ TAB PO ONE ×2 (08:00→17:24)
[2017-09-27] MEDS ORDERED: FUROSEMIDE 20 MG/2 ML VIAL IVP ONE (08:00)
[2017-09-27] MEDS: ASPIRIN 81 MG CHEWABLE TAB PO SCH (08:16)
[2017-09-27] MEDS: buPROPion SR 150 MG TAB PO SCH (08:16)
[2017-09-27] MEDS: APIXABAN 2.5 MG TAB PO SCH ×2 (08:17→21:15)
[2017-09-27] MEDS: METOPROLOL TARTRATE 25 MG TAB PO SCH ×2 (08:17→21:16)
[2017-09-27] MEDS: PANTOPRAZOLE SODIUM 40 MG TAB PO SCH (08:19)
--- NOTE | 2017-09-27 10:09 | CPEKG ---
Heart Rate: 56 RR Interval: 1071 P-R Interval: 248 QRSD Interval: 172 QT Interval: 500 QTC Interval: 483 P [place]: 27 QRS [place]: -14 T Wave [place]: 159 EKG Severity - ABNORMAL ECG - EKG Impression: SINUS RHYTHM EKG Impression: FIRST DEGREE AV BLOCK EKG Impression: LEFT BUNDLE BRANCH BLOCK VS PACED RHYTHM Electronically Signed By: Macario Kwan 27-Sep-2017 10:26:53
--- NOTE | 2017-09-27 16:05 | ASMTCMCOM ---
CM Note CM Note Notes: Discussed pt case w/NOAH Art. Pt will likely be ready to dc to SNF tomorrow or next day. Referrals have been sent. Met w/pt and sister to clarify 1st choice which is [facility], 2nd choice [facility]. Spoke w/Caro at [facility] and they are able to accept. Spoke w/Briana at [facility] and they will be able to let us know tomorrow if they have bed or not. Pt's sister, Ioana([phone]), very involved. She would like to be notified when pt gets dc order and regarding transport to SNF. She will be available tomorrow except from 10:30-1:30. CM will follow. Date Signed: 09/27/2017 04:04 PM Electronically Signed By:Anamika Peterson RN
[2017-09-27] MEDS ORDERED: FUROSEMIDE 40 MG/4 ML VIAL IVP ONE (17:24)
[2017-09-27] MEDS: ESCITALOPRAM OXALATE 10 MG TAB PO SCH (21:15)
[2017-09-27] MEDS: ATORVASTATIN CALCIUM 40 MG TAB PO SCH (21:40)
[2017-09-28] MEDS ORDERED: DILTIAZEM 30 MG TAB PO PRN (00:15)
[2017-09-28] MEDS: LEVOTHYROXINE 75 MCG TAB PO SCH (05:55)
--- NOTE | 2017-09-28 07:17 | SOAPPROG ---
SOAP Progress Note Assessment/Plan: POD#5 Urgent CABG x 3 (DE LEON-D1, SV-LAD, SV-LCX), EVH LLE, prophylactic suture ligation left atrial appendage Sx progressive left sided CAD - s/p CABG. Tubes out. Secondary prevention with ASA, statin, and BB as tolerated. ISCM, LVEF ~25% - Uneventful separation from CPB with preserved LV systolic fx. No vasoactive support. No sig volume overload. Staggered intro of heart failure meds as tolerated. Acute expected blood loss anemia - Stable. No transfusions required. Acute postoperative respiratory insufficiency - Hx chronic LLL atelectasis, possible MACY. Kept intubated night of surgery d/t hypoxemia and inc FiO2. Successfully extubated POD#1. Decreasing suppl O2 req. CPAP, mucolytics and duonebs prn. Postoperative paroxysmal atrial fibrillation with RVR. BB uptitrated today with soft SBP. Considering amiodarone but QTc elevated. Cardiology to make further recommendations. Antithrombotic prophylaxis with Eliquis for [id number] score of 4. Subjective: Denies pain/SOB. Objective: Vital Signs Temp Pulse Resp BP Pulse Ox 36.6 C 103 H 17 107/79 92 09/28/17 04:00 09/28/17 04:00 09/28/17 04:00 09/28/17 04:00 09/28/17 04:00 Laboratory Results 09/27/17 06:00 09/28/17 06:00 09/27/17 09/28/17 09/29/17 05:59 05:59 05:59 Intake Total 225 300 Output Total 725 4075 125 Balance -500 -3775 -125 PT 13.7 SEC (12.0-15.0) 09/21/17 12:50 INR 1.03 (0.83-1.16) 09/21/17 12:50 Physical Exam - Physical Exam General Appearance: WD/WN, alert, no apparent distress EENT: No scleral icterus (R), No scleral icterus (L) Neck: normal inspection Respiratory: No respiratory distress Cardiac/Chest: irregularly irregular Abdomen: non-tender, soft, No distended Skin: normal color, warm/dry Extremities: pedal edema Neuro/Psych: no motor/sensory deficits, alert, normal mood/affect, oriented x 3 ICD10 Worksheet Patient Problems: Problems Problem Status Onset CAD (coronary artery disease) Acute Postoperative atrial fibrillation Acute S/P CABG x 3 Acute chronic disease mgmt/transitional care Acute Osteoarthritis of knee Chronic
[2017-09-28] MEDS ORDERED: POTASSIUM CL 20 MEQ TAB PO ONE (07:18)
[2017-09-28] MEDS: APIXABAN 2.5 MG TAB PO SCH (07:57)
[2017-09-28] MEDS: PANTOPRAZOLE SODIUM 40 MG TAB PO SCH (07:57)
[2017-09-28] MEDS: METOPROLOL TARTRATE 25 MG TAB PO SCH ×2 (07:58→22:12)
[2017-09-28] MEDS: ASPIRIN 81 MG CHEWABLE TAB PO SCH (07:58)
[2017-09-28] MEDS: buPROPion SR 150 MG TAB PO SCH (07:59)
[2017-09-28] MEDS: FUROSEMIDE 40 MG TAB PO SCH (10:13)
[2017-09-28] MEDS: POTASSIUM CL 20 MEQ TAB PO SCH (10:13)
--- NOTE | 2017-09-28 12:54 | PDCARPN ---
Cardiology Progress Note Assessment/Plan: Assessment/plan: 72-year-old male with coronary disease and ischemic cardiomyopathy with ejection fraction 25%. Status post cardiac arrest 2006 and history of multiple PCI. On September 23 had 3 vessel bypass along with left atrial appendage ligation. Has now had postoperative atrial fibrillation. 1. Coronary disease: Status post CABG. Continue medical management with aspirin, statin, beta-ignacio. 2. Atrial fibrillation: Will try IV amiodarone to attempt chemical cardioversion. Continue low-dose beta-ignacio. Continue Eliquis. 3. Cardiomyopathy with reported ejection fraction 25%. He has diuresed well since surgery. Still mildly volume overloaded. Continue Lasix. He is on beta- blockers; would discharge on either Coreg or Toprol. Reintroduce Petar inhibitor when blood pressure can tolerate. 4. History of hypertension: Slightly lower now in atrial fibrillation. 5. Acute renal failure: Now resolved. 09/28/17 12:51 Subjective: He reports that he felt weak and dizzy during his walk today which was a new symptom. No falls or syncope. He denies angina, no significant sternotomy pain. He reports no dyspnea. Reviewed/Discussed With: other (Dr. Siddiqui) Objective: Vital Signs (8 Hrs) Temp Pulse Resp BP Pulse Ox 09/28/17 11:04 36.7 C 95 18 91/70 L 92 09/28/17 07:55 37.5 C 107 H 12 94/61 L 92 Intake/Output (24 Hrs) 09/27/17 09/28/17 09/29/17 05:59 05:59 05:59 Intake Total 225 300 400 Output Total 725 4075 625 Balance -500 -3775 -225 Intake: Oral (ml) 225 300 400 Output: Urine (ml) 725 4075 625 Diapers/Briefs 500 Toilet 400 Urinal 325 4075 125 Other: Weight 89.2 kg 85.956 kg Intake Quantity Yes Sufficient Number of Voids Incontinence 3 Toilet 1 Urinal 1 1 1 Number of Stools Urinal 1 No acute distress. Ecchymoses over his chest and neck. Irregular regular rhythm without S3, murmur or rub. Lungs clear to auscultation bilaterally without wheeze rhonchi or rales Extremities stigmata of chronic venous stasis. Trace to 1+ pitting edema to the midshin bilaterally. Result Diagrams: 09/27/17 06:00 09/28/17 06:00 EKG: Dated 09/27 reviewed: Sinus rhythm with left bundle branch block. Telemetry: Atrial fibrillation with ventricular rates in the 110s. ICD10 Worksheet Patient Problems: Problems Problem Status Onset Postoperative atrial fibrillation Acute S/P CABG x 3 Acute CAD (coronary artery disease) Acute chronic disease mgmt/transitional care Acute Osteoarthritis of knee Chronic
[2017-09-28] MEDS ORDERED: AMIODARONE HCL 100 ML IV ONE (12:56)
[2017-09-28] MEDS ORDERED: AMIODARONE HCL 200 ML IV ONE (12:56)
--- NOTE | 2017-09-28 13:57 | CPEKG ---
Heart Rate: 89 RR Interval: 674 QRSD Interval: 172 QT Interval: 456 QTC Interval: 555 QRS [place]: -24 T Wave [place]: 150 EKG Severity - ABNORMAL ECG - EKG Impression: ATRIAL FIBRILLATION EKG Impression: LEFT BUNDLE BRANCH BLOCK Electronically Signed By: Macario Kwan 28-Sep-2017 15:04:16
--- NOTE | 2017-09-28 14:38 | ASMTCMCOM ---
CM Note CM Note Notes: 09/28/2017 Case Management Note [facility] declined pt[facility] has accepted. Case Management d/c poc: to [facility]. Case Management to follow. Date Signed: 09/28/2017 02:37 PM Electronically Signed By:Yara Aguilar RN
[2017-09-28] MEDS ORDERED: AMIODARONE HCL 540 MG in D5W 300 ML IV ONE (20:00)
[2017-09-28] MEDS: ESCITALOPRAM OXALATE 10 MG TAB PO SCH (22:08)
[2017-09-28] MEDS: ATORVASTATIN CALCIUM 40 MG TAB PO SCH (22:11)
[2017-09-28] MEDS: APIXABAN 5 MG TAB PO SCH (22:11)
--- NOTE | 2017-09-29 06:22 | SOAPPROG ---
SOAP Progress Note Assessment/Plan: POD#6: Urgent CABG x 3 (DE LEON-D1, SV-LAD, SV-LCX), EVH LLE, prophylactic suture ligation left atrial appendage Sx progressive left sided CAD - s/p CABG. Tubes out. Secondary prevention with ASA, statin, and BB as tolerated. ISCM, LVEF ~25% - Uneventful separation from CPB with preserved LV systolic fx. No vasoactive support. No sig volume overload. Staggered intro of heart failure meds as tolerated. Acute expected blood loss anemia - Stable. No transfusions required. Acute postoperative respiratory insufficiency - Hx chronic LLL atelectasis, possible MACY. Kept intubated night of surgery d/t hypoxemia and inc FiO2. Successfully extubated POD#1. Decreasing suppl O2 req. CPAP, mucolytics and duonebs prn. Postoperative paroxysmal atrial fibrillation with RVR. Continue BB/Amiodarone. Antithrombotic prophylaxis with Eliquis for [id number] score of 4. DVT prophylaxis - SCDs/Eliquis. Disposition - SNF today. Subjective: Comfortable. Objective: Vital Signs Temp Pulse Resp BP Pulse Ox 36.7 C 57 L 16 144/74 H 94 09/29/17 04:00 09/29/17 04:00 09/29/17 04:00 09/29/17 04:00 09/29/17 04:00 Laboratory Results 09/27/17 06:00 09/28/17 06:00 09/28/17 09/29/17 09/30/17 05:59 05:59 05:59 Intake Total 300 1006 Output Total 4075 1225 Balance -3775 -219 PT 13.7 SEC (12.0-15.0) 09/21/17 12:50 INR 1.03 (0.83-1.16) 09/21/17 12:50 Physical Exam - Physical Exam General Appearance: WD/WN, alert, no apparent distress EENT: No scleral icterus (R), No scleral icterus (L) Neck: normal inspection Respiratory: No respiratory distress Cardiac/Chest: regular rate, rhythm Abdomen: non-tender, soft, No distended Skin: normal color, warm/dry Extremities: pedal edema Neuro/Psych: no motor/sensory deficits, alert, normal mood/affect, oriented x 3 ICD10 Worksheet Patient Problems: Problems Problem Status Onset CAD (coronary artery disease) Acute Postoperative atrial fibrillation Acute S/P CABG x 3 Acute chronic disease mgmt/transitional care Acute Osteoarthritis of knee Chronic
[2017-09-29] MEDS: LEVOTHYROXINE 75 MCG TAB PO SCH (06:41)
[2017-09-29 07:24] VITALS: BP 140/84
--- NOTE | 2017-09-29 09:45 | PDIAF ---
- Diagnosis Diagnosis: sp CABGx3 Code Status: Full Code - Medication Management Discharge Medications: Medications to Continue on Transfer Levothyroxine [Synthroid 75 mcg (*)] 75 mcg PO DAILY06 07/22/15 [Last Taken ] Atorvastatin Calcium [Lipitor 40 mg (*)] 40 mg PO HS 09/21/17 [Last Taken ] Escitalopram Oxalate [Lexapro] 20 mg PO HS 09/21/17 [Last Taken 09/20/17] buPROPion SR [Wellbutrin 150mg SR (*)] 150 mg PO DAILY 09/21/17 [Last Taken ] Acetaminophen [Tylenol 325mg (*)] 325 - 650 mg PO Q4HRS PRN tab 09/29/17 [Last Taken Unknown] Amiodarone HCl [Pacerone (*)] 200 mg PO BID tab 09/29/17 [Last Taken Unknown] Apixaban [Eliquis] 5 mg PO BID tab 09/29/17 [Last Taken Unknown] Aspirin [Aspirin 81mg (*)] 81 mg PO DAILY tab.chew 09/29/17 [Last Taken Unknown ] Furosemide [Lasix 40 MG (*)] 40 mg PO DAILY tab 09/29/17 [Last Taken Unknown] Metoprolol Tartrate [Lopressor 25 mg (*)] 25 mg PO BID tab 09/29/17 [Last Taken Unknown] Potassium Cl [Klor-Con 20 meq (*)] 20 meq PO DAILY tab 09/29/17 [Last Taken Unknown] Sennosides/Docusate Sodium [Senokot-S] 1 - 2 tab PO BID PRN tab 09/29/17 [Last Taken Unknown] traMADol [Ultram 50 mg (*)] 50 mg PO Q4HRS PRN tab 09/29/17 [Last Taken Unknown ] Discharge Medications: Refer to the Discharge Home Medication list for PRN reason. PICC Care - Routine: N/A - Orders Services needed: Registered Nurse, Certified Bath Attendant, Master Optometry Assistant , Physical Therapy, Occupational Therapy Isolation Type: None Oxygen: 2L NC continuous Diet Recommendation: cardiac -low fat low salt, fluid restriction (use comment for amount) (2 liters per day) Diet Texture: Regular Texture Diet, Thin Liquids, Meds Whole w/Liquids Weigh Patient: daily Cabezas: No Additional Instructions: Call [facility] cardiac rehab to enroll in phase 2 classes once released from inpatient rehab facility. Sternal precautions x 4 weeks. Avoid lifting > 10lbs with an outstretched arm. Avoid push/pull activities. Cleanse wounds once daily with soap and water. Avoid underwater immersion (pool , hot tub, bath) until scabs off. Ok to leave all wounds open to air. Avoid creams or ointments until scabs off. Elevate low legs at rest. Avoid prolonged standing or dangling. Log daily vital signs: weight, resting heart rate over 1 minute, blood pressure , and pulse oximetry. Call [facility] for overnight weight gain > 2lbs, weekly gain > 5lbs or worsening leg swelling. Call [facility] for resting heart rate > 120 or < 50 OR for systolic blood pressure consistently < 90 or > 150. Target oxygen saturation > 89%. Adjustments per rehab. Please obtain labwork and a chest xray prior to surgical appointment. Use requisition forms attached to appointment card. No appointment required. Go to the Emergency Room entrance at the [facility] location. Sign in at the computer kiosk in the entryway. You will be given a number and may sit in the waiting area until called. You will be registered and directed to the laboratory and imaging desk on the 1st floor. This process can take up to an hour. Allow at least 45 min before your appointment to get studies taken. Ok to use [id number] medications for iron supplementation, bowel function or pain. Max daily dose of Tylenol 3000 mg. Avoid nonsteroidal anti-inflammatories (ibuprofen, advil, motrin) while on Eliquis. - Labs/Radiology Imaging Orders: CXR at [facility] prior to follow-up appointment. - Follow Up Care Current Providers and Referrals: Doctor SuhOn MD Hong [Primary Care Provider] - Thee Siddiqui DO [Doctor of Osteopathy] - 10/05/17 1:15 pm Kym Allen PA [Physician Embossing Unit Operator] - agency to contact patient
[2017-09-29] MEDS: FUROSEMIDE 40 MG TAB PO SCH (10:10)
[2017-09-29] MEDS: APIXABAN 5 MG TAB PO SCH (10:10)
[2017-09-29] MEDS: POTASSIUM CL 20 MEQ TAB PO SCH (10:10)
[2017-09-29] MEDS: PANTOPRAZOLE SODIUM 40 MG TAB PO SCH (10:11)
[2017-09-29] MEDS: METOPROLOL TARTRATE 25 MG TAB PO SCH (10:11)
[2017-09-29] MEDS: ASPIRIN 81 MG CHEWABLE TAB PO SCH (10:11)
[2017-09-29] MEDS: buPROPion SR 150 MG TAB PO SCH (10:11)
--- NOTE | 2017-09-29 13:05 | PDDCSUM ---
Discharge Summary Discharge Summary: ADMISSION DATE: 09/21/17 DISCHARGE DATE: 09/29/17 DISCHARGE DIAGNOSES 1. CAD 2. Ischemic cardiomyopathy 3. Post-op paroxysmal atrial fibrillation 4. Acute blood loss anemia PROCEDURES 09/23/17, Thee Siddiqui: 1. CABGx3 (DE LEON-D1, SVG-lat circ, SVG-LAD with patch enlargement) 2. Ligation GAVIN 3. EVH left thigh HOSPITAL COURSE BY PROBLEM LIST 1. CAD - s/p CABGx3. Secondary prevention with beta-ignacio, aspirin, and statin. 2. Ischemic cardiomyopathy - post-op preserved LVEF of 25%. Continue beta- ignacio and diuretic. 3. Post-op paroxysmal atrial fibrillation - continue amiodarone and beta- ignacio. Thromboprophylaxis with Eliquis. 4. Acute blood loss anemia - no transfusions necessary. CONDITION Good DISPOSITION [facility] ACTIVITY Pt was instructed on sternal precautions, activity limitations, and which problems to call [facility] with. Please see Discharge Plan and Interagency Discharge Form in chart for specifics. DISCHARGE MEDICATIONS Continue: Levothyroxine [Synthroid 75 mcg (*)] 75 mcg PO DAILY06 Atorvastatin Calcium [Lipitor 40 mg (*)] 40 mg PO HS Escitalopram Oxalate [Lexapro] 20 mg PO HS buPROPion SR [Wellbutrin 150mg SR (*)] 150 mg PO DAILY New: Acetaminophen [Tylenol 325mg (*)] 325 - 650 mg PO Q4HRS PRN Amiodarone HCl [Pacerone (*)] 200 mg PO BID (BID for 7 days that QD for 23 days , stop when bottle empty) Apixaban [Eliquis] 5 mg PO BID Aspirin [Aspirin 81mg (*)] 81 mg PO DAILY Furosemide [Lasix 40 MG (*)] 40 mg PO DAILY Metoprolol Tartrate [Lopressor 25 mg (*)] 25 mg PO BID Potassium Cl [Klor-Con 20 meq (*)] 20 meq PO DAILY Sennosides/Docusate Sodium [Senokot-S] 1 - 2 tab PO BID PRN traMADol [Ultram 50 mg (*)] 50 mg PO Q4HRS PRN Stop: ASA 325 mg Plavix Lisinopril Lasix 20 mg daily Coreg Norvasc PENDING STUDIES/LABS 1. CXR prior to surgical follow-up FOLLOW-UP 1. Thee Siddiqui, 10/05/17, 1:15 PM 2. Kym Allen, to be arranged
[2017-09-29] MEDS ORDERED: AMIODARONE HCL 200 MG TAB PO SCH (21:00)
--- NOTE | 2017-09-30 12:29 | ASDISCHSUM ---
Discharge Information Plan Status:SNF Medically Cleared to Leave:09/29/2017 Discharge Date:09/29/2017 12:30 PM CM D/C Disposition: ADT D/C Disposition:Snf Facility Projected Discharge Date:09/27/2017 11:00 AM Transportation at D/C: Discharge Delay Reason: Follow-Up Date:09/27/2017 11:00 AM Discharge Slot: Final Diagnosis: Placement Information Referral Type:*Home Health Care Services Referral ID:[id number] Provider Name: Address 1: Phone Number: Address 2: Fax Number: City: Selection Factors: State: Referral Type:*[place]/SNF Referral ID:[id number] Provider Name:[facility] Address 1:[address] [place] [address] Address 2: City:[place] Selection Factors: State:[place] Patient Contact Information Contact Name:HILARIO Relationship:Sister Address: Home Phone: City:[place] Alternate Phone: State/Zip Code:[place] [address] Email: Financial Information Financial Class:Medicare Primary Plan Desc:MEDICARE INPATIENT Primary Plan Number:[id number] Secondary Plan Desc:MED[place] Secondary Plan Number:[id number] Assessment Information [facility] Initial CM Assessment Living Arrangements What is your living Answers: Alone arrangement? Who do you live with? Type Of Residence What kind of residence do Answers: Apartment you live in? Discharge Plan Comments Coordination Status Comments Notes: Pt is a 72 y/o man admitted for a cardiac cath. Pt will most likely d/c independent when medically stable. No therapies ordered at this time. Pt may have outpatient cardiac rehab. CM available for changes. Plan: Independent Date Signed: 09/22/2017 09:10 AM Electronically Signed By:CONOR Larkin [facility] CM Progress Note CM Note CM Note Notes: 09/23/2017 Case Management Note Met w/pt and sister Ioana [phone] to answer questions about potential discharge options. Pt is current with [facility]. Contacted pt RN Dolly at [phone]. Faxed referral to [facility]. Dolly has been his RN for 6 years and manages his medications. If pt requires SNF rehab sister Ioana wants to be involved in choosing a facility. [facility] first choice, [facility] and [facility] are second. Discussed difficulties getting a bed a [facility]. Will await PT evals before sending any referrals to SNF. Case Management d/c poc: to be determined. Case Management to follow. Date Signed: 09/23/2017 10:03 AM Electronically Signed By:Yara Aguilar RN [facility] Progress Note CM Note CM Note Notes: Chart reviewed. Met with patient and his sister at length to discuss care alternatives for him at discharge. Ioana feel he would be best off going to inpatient rehab prior to going home to her residence for a period of time with HC services in place. We have discussed local options and she would prefer we do referral for [facility] and perhaps [facility]. Referrals placed via [facility]. I have encouraged Ioana to tour facilities. CM to follow Plan: To SNF rehab Date Signed: 09/26/2017 02:52 PM Electronically Signed By:Nellie Argueta RN [facility] CM Progress Note CM Note CM Note Notes: Discussed pt case w/NOAH Art. Pt will likely be ready to dc to SNF tomorrow or next day. Referrals have been sent. Met w/pt and sister to clarify 1st choice which is [facility], [facility]. Spoke w/Caro at [facility] and they are able to accept. Spoke w/Dustin at [facility] and they will be able to let us know tomorrow if they have bed or not. Pt's sister, Ioana([phone]), very involved. She would like to be notified when pt gets dc order and regarding transport to SNF. She will be available tomorrow except from 10:30-1:30. CM will follow. Date Signed: 09/27/2017 04:04 PM Electronically Signed By:Anamika Peterson RN [facility] CM Progress Note CM Note CM Note Notes: 09/28/2017 Case Management Note [facility] declined pt. [facility] has accepted. Case Management d/c poc: to [facility]. Case Management to follow. Date Signed: 09/28/2017 02:37 PM Electronically Signed By:Yara Aguilar RN Case Management Discharge Plan Note Case Management Discharge Discharge Order Complete? Answers: Yes Patient to Obtain Answers: Other Notes: [facility] Medications Faxed Final Orders Answers: Yes Agency/Facility Transfer Answers: Yes Report Printed & Faxed to Receiving Agency Discharge Comments Notes: Pt d/c to [facility] on 09/29/2017. Transport arranged by [facility]. Faxed final orders. RN called report. Date Signed: 09/30/2017 12:28 PM Electronically Signed By:Yara Aguilar RN Intervention Information Intervention Type:*MUELLER-Signed Date of Service:09/22/2017 10:26 AM Patient Type:Observation Staff Member:Bambi Fields Hours: Discipline: Severity: Comment: Intervention Type:*IM-Signed Date of Service:09/29/2017 10:15 AM Patient Type:Inpatient Staff Member:Bambi Fields Hours: Discipline: Severity: Comment:
== END 2017-09-29 12:30 | DRG 234 ==
LOC: FCATH 12:13 → F2W 15:03 → OBSVTOIN 15:05 → F2W 18:17 → F2N 09-23 11:16 → F2W 09-24 19:55
PROVIDERS: ADMIT Thoracic Surgery (Cardiothoracic Vascular Surgery); ATTEND Internal Medicine Interventional Cardiology
PROC: 4A023N7 Measurement of Cardiac Sampling and Pressure, Left Heart, Percutaneous Approach (ICD-10-PCS; 2017-09-21)
PROC: B2111ZZ Fluoroscopy of Multiple Coronary Arteries using Low Osmolar Contrast (ICD-10-PCS; 2017-09-21)
PROC: B2151ZZ Fluoroscopy of Left Heart using Low Osmolar Contrast (ICD-10-PCS; 2017-09-21)
PROC: 021109W Bypass Coronary Artery, Two Arteries from Aorta with Autologous Venous Tissue, Open Approach (ICD-10-PCS; principal; 2017-09-23 11:45)
PROC: 02100Z9 Bypass Coronary Artery, One Artery from Left Internal Mammary, Open Approach (ICD-10-PCS; principal; 2017-09-23 11:45)
PROC: 06BQ4ZZ Excision of Left Saphenous Vein, Percutaneous Endoscopic Approach (ICD-10-PCS; principal; 2017-09-23 11:45)
PROC: 02L70CK Occlusion of Left Atrial Appendage with Extraluminal Device, Open Approach (ICD-10-PCS; principal; 2017-09-23 11:45)
PROC: 5A1221Z Performance of Cardiac Output, Continuous (ICD-10-PCS; principal; 2017-09-23 11:45)
DX: I25.10 Atherosclerotic heart disease of native coronary artery without angina pectoris (principal); D62 Acute posthemorrhagic anemia; I48.0 Paroxysmal atrial fibrillation; G47.33 Obstructive sleep apnea (adult) (pediatric); E03.9 Hypothyroidism, unspecified; I10 Essential (primary) hypertension; E78.5 Hyperlipidemia, unspecified; Z95.5 Presence of coronary angioplasty implant and graft; Z96.653 Presence of artificial knee joint, bilateral; Z86.718 Personal history of other venous thrombosis and embolism
CPT/HCPCS: 82947-QW; 92507-GN; 92523-GN; 92526-GN; 92610-GN; 97116-GP; 97161-GP; 97166-GO; 97530-GO; 97530-GP; 97535-GO; C1769; G0378; G0379; G8978-GP-CK; G8979-GP-CI; G8987-GO-CK; G8988-GO-CJ; G8996-GN-CI; G8997-GN-CI; G8998-GN-CH; G9168-GN-CK; G9168-GN-CL; G9169-GN-CJ; G9169-GN-CL; G9170-GN-CL; J0153; J0171; J0282; J0461; J0690; J1100; J1265; J1644; J1815; J1940; J2001; J2150; J2250; J2260; J2270; J2370; J2405; J2440; J2704; J2720; J2930; J3010; J3475; J7060; P9041; Q9967

== ENCOUNTER → 2017-10-05 | Outpatient (CLI) | payer OTHER, MEDICAID | LOC: FIMAGING 12:09 | PROVIDERS: ATTEND Thoracic Surgery (Cardiothoracic Vascular Surgery) | DX: Z09 Encounter for follow-up examination after completed treatment for conditions other than malignant neoplasm (principal); I51.7 Cardiomegaly; K44.9 Diaphragmatic hernia without obstruction or gangrene; Z95.1 Presence of aortocoronary bypass graft ==

== ENCOUNTER → 2017-10-25 | Outpatient (CLI) | payer OTHER, MEDICAID | LOC: BHFA 14:15 | PROVIDERS: ATTEND Nurse Practitioner Adult Health | DX: I50.9 Heart failure, unspecified (principal); I25.10 Atherosclerotic heart disease of native coronary artery without angina pectoris ==

== ENCOUNTER 2018-08-04 11:31 | Inpatient (IN) | payer OTHER, MEDICAID ==
--- NOTE | 2018-08-04 11:56 | EDPHY ---
H & P Stated Complaint: exertional dyspnea increasing x months Time Seen by Provider: 08/04/18 11:35 HPI/ROS: Chief Complaint: Shortness of breath HPI: 73-year-old male with a history of coronary artery disease, status post MO x2, CABG in October 2017, history of subdural hematoma and hypertension. Patient has been having increasing shortness of breath on exertion for the last couple months. Patient states that he has been having increasing difficulty walking his dog. Yesterday he was unable to cross the park without sitting down and resting. These are all new symptoms for him. Denies any chest pain. He was seen by visiting nurse this morning who became concerned about the symptoms and sent him to the emergency department. Patient states he does not currently feel short of breath. No chest pain. No fevers or chills. No cough. No nausea or vomiting. He last saw his cardiology PA about 2 months ago. At that time is complaining of bilateral leg pain in she adjusted his medications. ROS: 10 systems were reviewed and were negative except those elements noted in the HPI. PMH: Coronary artery disease status post MO x2, CABG in 2015, subdural hematoma , hypertension Social History: No smoking, no alcohol, no recreational drug use, lives alone Family History: non-contributory Physical Exam: Gen: Awake, Alert, No Distress HEENT: Nose: no rhinorrhea Eyes: PERRLA, EOMI Mouth: Moist mucosa Neck: Supple, no JVD Chest: nontender, lungs clear to auscultation Heart: S1, S2 normal, no murmur Abd: Soft, non-tender, no guarding Back: no CVA tenderness, no midline tenderness Ext: no edema, non-tender Skin: no rash Neuro: CN II-XII intact, Sensation grossly intact, Strength 5/5 in bilateral upper and lower extremities - Personal History Tetanus Vaccine Date: October 2014 - Medical/Surgical History Hx Asthma: No Hx Chronic Respiratory Disease: No Hx Diabetes: No Hx Cardiac Disease: Yes Hx Renal Disease: No Hx Cirrhosis: No Hx Alcoholism: No Hx HIV/AIDS: No Hx Splenectomy or Spleen Trauma: No Other PMH: Stents x4, high cholesterol, MO 07, hypothyroid, BPH, depression, HTN - Social History Smoking Status: Never smoked Constitutional: Initial Vital Signs Temperature (C) 37.0 C 08/04/18 11:42 Heart Rate 54 L 08/04/18 11:42 Respiratory Rate 16 08/04/18 11:42 Blood Pressure 119/64 08/04/18 11:42 O2 Sat (%) 97 08/04/18 11:42 O2 Delivery Mode Room Air Allergies/Adverse Reactions: No Known Allergies Allergy (Unverified 11/27/12 18:46) Home Medications: Medication Instructions Recorded Levothyroxine [Synthroid 75 mcg 75 mcg PO DAILY06 07/22/15 (*)] Atorvastatin Calcium [Lipitor 40 40 mg PO HS 09/21/17 mg (*)] Escitalopram Oxalate [Lexapro] 20 mg PO HS 09/21/17 buPROPion SR [Wellbutrin 150mg SR 150 mg PO DAILY 09/21/17 (*)] Acetaminophen [Tylenol 325mg (*)] 325 - 650 mg PO Q4HRS PRN tab 09/29/17 Amiodarone HCl [Pacerone (*)] 200 mg PO BID tab 09/29/17 Apixaban [Eliquis] 5 mg PO BID tab 09/29/17 Aspirin [Aspirin 81mg (*)] 81 mg PO DAILY tab.chew 09/29/17 Furosemide [Lasix 40 MG (*)] 40 mg PO DAILY tab 09/29/17 Metoprolol Tartrate [Lopressor 25 25 mg PO BID tab 09/29/17 mg (*)] Potassium Cl [Klor-Con 20 meq (*)] 20 meq PO DAILY tab 09/29/17 Sennosides/Docusate Sodium 1 - 2 tab PO BID PRN tab 09/29/17 [Senokot-S] traMADol [Ultram 50 mg (*)] 50 mg PO Q4HRS PRN tab 09/29/17 Medical Decision Making - Diagnostics EKG Interpretation: ECG time 11:39 a.m., sinus rhythm with a rate of 51, left bundle-branch plant, short pure interval. ECG unchanged compared to 28 Sep 2017. Imaging Results: Imaging Impressions Chest X-Ray 08/04/18 11:49 Impression: Cardiomegaly with interstitial pulmonary edema and small pleural effusions suggestive of acute congestive heart failure. ED Course/Re-evaluation: 73-year-old male presenting with worsening dyspnea on exertion who is sent in by his visiting nurse today. Troponin is negative. ECG shows his chronic left bundle branch block. Patient lives alone. Given his worsening symptoms plan will be for admission for further evaluation. I have discussed with Ro Walters, hospitalist. They will admit to their service for further care. - Data Points Laboratory Results: Laboratory Results 08/04/18 11:35 08/04/18 11:35 08/04/18 08/04/18 08/04/18 11:58 11:35 11:35 WBC 7.05 10^3/uL 10^3/uL (3.80-9.50) RBC 4.37 10^6/uL L 10^6/uL (4.40-6.38) Hgb 13.4 g/dL L g/dL (13.7-17.5) Hct 41.5 % % (40.0-51.0) MCV 95.0 fL fL (81.5-99.8) MCH 30.7 pg pg (27.9-34.1) MCHC 32.3 g/dL L g/dL (32.4-36.7) RDW 15.7 % H % (11.5-15.2) Plt Count 136 10^3/uL L 10^3/uL (150-400) MPV 13.0 fL H fL (8.7-11.7) Neut % (Auto) 71.4 % % (39.3-74.2) Lymph % (Auto) 16.2 % % (15.0-45.0) [place] % (Auto) 10.4 % % (4.5-13.0) Eos % (Auto) 1.3 % % (0.6-7.6) Baso % (Auto) 0.6 % % (0.3-1.7) Nucleat RBC Rel Count 0.0 % % (0.0-0.2) Absolute Neuts (auto) 5.04 10^3/uL 10^3/uL (1.70-6.50) Absolute Lymphs (auto) 1.14 10^3/uL 10^3/uL (1.00-3.00) Absolute Monos (auto) 0.73 10^3/uL 10^3/uL (0.30-0.80) Absolute Eos (auto) 0.09 10^3/uL 10^3/uL (0.03-0.40) Absolute Basos (auto) 0.04 10^3/uL 10^3/uL (0.02-0.10) Absolute Nucleated RBC 0.00 10^3/uL 10^3/uL (0-0.01) Immature Gran % 0.1 % % (0.0-1.1) Immature Gran # 0.01 10^3/uL 10^3/uL (0.00-0.10) Sodium 141 mEq/L mEq/L (135-145) Potassium 4.7 mEq/L mEq/L (3.5-5.2) Chloride 109 mEq/L mEq/L (97-110) Carbon Dioxide 20 mEq/l L mEq/l (22-31) Anion Gap 12 mEq/L mEq/L (6-14) BUN 31 mg/dL H mg/dL (7-23) Creatinine 1.4 mg/dL H mg/dL (0.7-1.3) Estimated GFR 49 Glucose 73 mg/dL mg/dL (70-100) Calcium 9.2 mg/dL mg/dL (8.5-10.4) POC Troponin I 0.03 ng/mL ng/mL (0.00-0.08) Point of Care Test Results: Chemistry 08/04/18 11:58 POC Troponin I 0.03 ng/mL ng/mL (0.00-0.08) Departure - Departure Disposition: [facility] Inpatient Acute Clinical Impression: Unstable angina, Dyspnea Condition: Fair Referrals: Patient,NotPresent [Unknown] - As per Instructions
[2018-08-04 12:04] LABS: PLATELET COUNT 136 10^3/uL (150-400)
--- NOTE | 2018-08-04 13:58 | ASMTCMCOM ---
CM Note CM Note Notes: Patient presents t the ED at the prompting of his HH RN, Chiara Miller with [facility] and is admitted with symptoms for acute CHF. Patient has a history of stents and also had OHS in October,. He is followed by [facility] and usually sees SPENCER Giraldo. I have contacted Kristal at and informed her of plans for admission. Patient lives alone in [place] and tells me he has a good support system. Chiara, his HH nurse checks in with him frequently and they are "friends". Patient has a small dog, "Jensen" and he tells me that Chiara will be able to take care of Jensen while he is in the hospital. This CM has contacted Chiara to notify her of plans for admission. Chiara confirms that she will product picker Jensen shortly and keep her as long as she needs. Chiara is availble prn for updates and discharge planning. CM to follow Date Signed: 08/04/2018 01:57 PM Electronically Signed By:Naomi Mobley RN
[2018-08-04] MEDS ORDERED: ACETAMINOPHEN 325 MG TAB PO PRN (16:10)
[2018-08-04] MEDS ORDERED: ONDANSETRON 4 MG/2 ML VIAL IVP PRN (16:10)
[2018-08-04] MEDS ORDERED: ONDANSETRON DISINTEGRATING 4 MG TAB PO PRN (16:10)
[2018-08-04] MEDS ORDERED: FUROSEMIDE 20 MG/2 ML VIAL IVP ONE ×2 (16:13→18:45)
[2018-08-04] MEDS ORDERED: traMADol 50 MG TAB PO PRN (16:14)
--- NOTE | 2018-08-04 16:20 | PDGENHP ---
History and Physical - Chief Complaint MCCULLOUGH - History of Present Illness 73-year-old male with a history of coronary artery disease, status post MS x2, CABG in October 2017, history of subdural hematoma and hypertension. Patient has been having increasing shortness of breath on exertion for the last couple months. Patient states that he has been having increasing difficulty walking his dog. Yesterday he was unable to cross the park without sitting down and resting. These are all new symptoms for him. Denies any chest pain. He was seen by visiting nurse this morning who became concerned about the symptoms and sent him to the emergency department. Patient states he does not currently feel short of breath. No chest pain. No fevers or chills. No cough. No nausea or vomiting. He last saw his cardiology PA about 2 months ago. At that time is complaining of bilateral leg pain in she adjusted his medications. In the ER, CXR is c/w pulm edema. He is on a small amount of Lasix at home He denies cp or fever or leg swelling. PMH: Coronary artery disease status post MS x2, CABG in 2015, subdural hematoma , hypertension Social History: No smoking, no alcohol, no recreational drug use, lives alone Family History: non-contributory History Information - Allergies/Home Medication List Allergies/Adverse Reactions: No Known Allergies Allergy (Unverified 11/27/12 18:46) Home Medications: Levothyroxine [Synthroid 75 mcg (*)] 75 mcg PO DAILY06 07/22/15 [Last Taken ] Atorvastatin Calcium [Lipitor 40 mg (*)] 40 mg PO HS 09/21/17 [Last Taken ] Escitalopram Oxalate [Lexapro] 20 mg PO HS 09/21/17 [Last Taken 09/20/17] buPROPion SR [Wellbutrin 150mg SR (*)] 150 mg PO DAILY 09/21/17 [Last Taken ] Acetaminophen [Tylenol 325mg (*)] 325 mg PO Q4HRS PRN 08/04/18 [Last Taken Unknown] Aspirin EC [Aspirin EC 81 mg (*)] 81 mg PO DAILY 08/04/18 [Last Taken Unknown] Furosemide [Furosemide] 10 mg PO DAILY 08/04/18 [Last Taken Unknown] Lisinopril [Zestril 5 mg (*)] 5 mg PO DAILY 08/04/18 [Last Taken Unknown] Mirabegron [Myrbetriq] 25 mg PO DAILY 08/04/18 [Last Taken Unknown] I have personally reviewed and updated: medical history, social history - Past Medical History Additional medical history: as per HPI - Surgical History Additional surgical history: as per HPI - Social History Smoking Status: Never smoked Review of Systems Review of Systems: ROS: 10pt was reviewed & negative except for what was stated in HPI & below Physical Exam Physical Exam: Temp Pulse Resp BP Pulse Ox 37.0 C 54 L 16 137/84 H 97 08/04/18 11:42 08/04/18 14:06 08/04/18 14:06 08/04/18 14:06 08/04/18 14:06 Constitutional: no apparent distress Eyes: PERRL Ears, Nose, Mouth, Throat: moist mucous membranes Cardiovascular: regular rate and rhythym Respiratory: reduced air movement Gastrointestinal: normoactive bowel sounds, soft, non-tender abdomen Skin: warm Neurologic: AAOx3 Psychiatric: interacting appropriately, not anxious, not encephalopathic Lymph, Heme, Immunologic: No petechiae Lab Data & Imaging Review 08/04/18 11:35 08/04/18 11:35 WBC 7.05 10^3/uL (3.80-9.50) 08/04/18 11:35 RBC 4.37 10^6/uL (4.40-6.38) L 08/04/18 11:35 Hgb 13.4 g/dL (13.7-17.5) L 08/04/18 11:35 Hct 41.5 % (40.0-51.0) 08/04/18 11:35 MCV 95.0 fL (81.5-99.8) 08/04/18 11:35 MCH 30.7 pg (27.9-34.1) 08/04/18 11:35 MCHC 32.3 g/dL (32.4-36.7) L 08/04/18 11:35 RDW 15.7 % (11.5-15.2) H 08/04/18 11:35 Plt Count 136 10^3/uL (150-400) L 08/04/18 11:35 MPV 13.0 fL (8.7-11.7) H 08/04/18 11:35 Neut % (Auto) 71.4 % (39.3-74.2) 08/04/18 11:35 Lymph % (Auto) 16.2 % (15.0-45.0) 08/04/18 11:35 [place] % (Auto) 10.4 % (4.5-13.0) 08/04/18 11:35 Eos % (Auto) 1.3 % (0.6-7.6) 08/04/18 11:35 Baso % (Auto) 0.6 % (0.3-1.7) 08/04/18 11:35 Nucleat RBC Rel Count 0.0 % (0.0-0.2) 08/04/18 11:35 Absolute Neuts (auto) 5.04 10^3/uL (1.70-6.50) 08/04/18 11:35 Absolute Lymphs (auto) 1.14 10^3/uL (1.00-3.00) 08/04/18 11:35 Absolute Monos (auto) 0.73 10^3/uL (0.30-0.80) 08/04/18 11:35 Absolute Eos (auto) 0.09 10^3/uL (0.03-0.40) 08/04/18 11:35 Absolute Basos (auto) 0.04 10^3/uL (0.02-0.10) 08/04/18 11:35 Absolute Nucleated RBC 0.00 10^3/uL (0-0.01) 08/04/18 11:35 Immature Gran % 0.1 % (0.0-1.1) 08/04/18 11:35 Immature Gran # 0.01 10^3/uL (0.00-0.10) 08/04/18 11:35 Sodium 141 mEq/L (135-145) 08/04/18 11:35 Potassium 4.7 mEq/L (3.5-5.2) 08/04/18 11:35 Chloride 109 mEq/L (97-110) 08/04/18 11:35 Carbon Dioxide 20 mEq/l (22-31) L 08/04/18 11:35 Anion Gap 12 mEq/L (6-14) 08/04/18 11:35 BUN 31 mg/dL (7-23) H 08/04/18 11:35 Creatinine 1.4 mg/dL (0.7-1.3) H 08/04/18 11:35 Estimated GFR 49 08/04/18 11:35 Glucose 73 mg/dL (70-100) 08/04/18 11:35 Calcium 9.2 mg/dL (8.5-10.4) 08/04/18 11:35 POC Troponin I 0.03 ng/mL (0.00-0.08) 08/04/18 11:58 Assessment & Plan Assessment: #MCCULLOUGH #CAD with Hx of CABG in May 2017 #DEMETRIUS Plan: Admission CP r/o Echo Lasix x 1 monitor cr, hold home Lisinopril cardiology consultation appropriate home meds DVT proph: Heparin
[2018-08-04] MEDS: HEPARIN 5,000 UNIT/0.5 ML INJ SC SCH (21:12)
[2018-08-04] MEDS: ATORVASTATIN CALCIUM 40 MG TAB PO SCH (21:13)
[2018-08-04] MEDS: METOPROLOL TARTRATE 25 MG TAB PO SCH (21:13)
[2018-08-04] MEDS: ESCITALOPRAM OXALATE 10 MG TAB PO SCH (21:14)
[2018-08-05 04:26] LABS: PLATELET COUNT 130 10^3/uL (150-400)
[2018-08-05] MEDS: HEPARIN 5,000 UNIT/0.5 ML INJ SC SCH ×2 (06:37→14:35)
[2018-08-05] MEDS: LEVOTHYROXINE 75 MCG TAB PO SCH (06:37)
[2018-08-05] MEDS: buPROPion SR 150 MG TAB PO SCH (08:44)
[2018-08-05] MEDS: ASPIRIN EC 81 MG TAB PO SCH (08:44)
[2018-08-05] MEDS: Mirabegron [Myrbetriq] 25 MG PO SCH (08:44)
[2018-08-05] MEDS ORDERED: FUROSEMIDE 20 MG/2 ML VIAL IVP ONE (09:20)
[2018-08-05] MEDS: METOPROLOL TARTRATE 25 MG TAB PO SCH (09:32)
--- NOTE | 2018-08-05 12:42 | CPEKG ---
Test Reason : OPEN Blood Pressure : / mmHG Vent. Rate : 051 BPM Atrial Rate : 051 BPM P-R Int : 063 ms QRS Dur : 181 ms QT Int : 597 ms P-R-T Axes : 016 -33 160 degrees QTc Int : 551 ms Sinus rhythm Short [place] interval Probable left atrial enlargement Left bundle branch block Confirmed by Madhu Torres ([id number]) on 08/05/2018 12:41:22 PM Referred By: Madhu Torres Confirmed By:Madhu Torres
--- NOTE | 2018-08-05 14:26 | ECHO ---
[email or web address] [address] [address] Main: [phone] Echocardiography Examination Transthoracic Name: KATIE TAVERAS MR#: [id number] Study Date: 08/05/2018 Study Time: 08:04 AM Date of : 1945 Age: 73 year(s) Height: 182.9 cm (72 in.) Weight: 90.72 kg (200 lb.) BSA: 2.13 m2 Gender: Male Examination: Echo Contrast: Image Quality: Adequate Rhythm: Heart Rate: 77 bpm BP: 151 mmHg/86 mmHg Indication: CHF Procedure Staff Referring Physician: Library Manager: Reading Physician: Triston Gomez MD Requesting Provider: Ordering Physician: Robert Santiago Indication: CHF (1) Left ventricular systolic ejection fraction was severely reduced (10-15%) - severe global hypokinesis - mild LVH - Grade III diastolic dysfunction was noted - there appears to be thrombus to the apex of the LV (2) Mild RV dilation with normal function (3) Severe biatrial dilation (4) Moderate MR (5) Trileaflet aortic valve without sclerosis or insufficiency (6) Moderate TR - RVSP was 55-60 mm Hg (7) Moderate PI (8) No pericardial effusion Measurements Chambers AV/MV Label Value Normal Value Label Value Normal Value LVOT Vmax 0.59 m/s (0.7m/s - 1.1m/s) AV PGmax 5 mmHg LVOTd 2.3 cm (1.9cm - 2.1cm) AV Vmax 1.09 m/s LVOT PGmax 1 mmHg ULISES (Vmax) 2.2 cm2 LVDd, 2D 6.2 cm (4.2cm - 5.9cm) MV E Vmax 0.85 m/s LVDs, 2D 5.9 cm (2.1cm - 4cm) MV A Vmax 0.2 m/s IVSd, 2D 1.1 cm (0.6cm - 1.1cm) MV E/A 4.25 Patient: KATIE TAVERAS Study Date: 08/05/2018 Page 1 of 3 08:04 AM LVPWd, 2D 1.2 cm (0.6cm - 1cm) MV E/E' lateral 28.3 LVEF, BP 18 % (55% - 70%) MV E/E' septal 28.3 (0.45 - 1.25) LVEF, 2D 11 % (54% - 74%) MV DT 141 ms RVDd, 2D 5.2 cm (1.9cm - 3.8cm) MV E' septal 0.03 m/s TAPSE 1.3 cm MR Vena Contracta 0.5 cm LA Volume, BP 159 ml (18ml - 58ml) MV E' lateral 0.03 m/s LADs, 2D 3.9 cm (3cm - 4cm) MV E/E' mean 28.33 LAESV index, BP 74.6 ml/m2 MV E' mean 0.03 m/s RA Area 33 cm2 TV/PV Additional Vessels Label Value Normal Value Label Value Normal Value RA Pressure 15 mmHg AoAsc 3.6 cm RVSP 59 mmHg AoRoot, 2D 3.9 cm (1.4cm - 2.6cm) TR Pmax 44 mmHg TR Vmax 3.3 m/s DE End gomez Rodrigo 1.14 cm/s PV PGmax 2 mmHg PV Vmax, Caliper 0.72 m/s (0.6m/s - 0.9m/s) Findings Left Ventricle: Left ventricle is moderately dilated. Severely reduced systolic left ventricular function. EF evaluated by EF (biplane Guzmán's). The ejection fraction, measured by Simpsons method, is 18 %. EF range is estimated at 15 % - 20 %. There is mild concentric left ventricular hypertrophy. The basal anterior, basal anteroseptal, basal inferoseptal, basal inferior, basal inferolateral, basal anterolateral, mid anterior, mid anteroseptal, mid inferior, mid inferolateral, mid anterolateral and apical inferior left ventricular wall segments are hypokinetic (2). The mid inferoseptal, apical anterior, apical septal, apical lateral and apex left ventricular wall segments are akinetic (3). Grade III Diastolic Dysfunction. Right Ventricle: Mildly dilated right ventricle. Right ventricular wall thickness is normal. Right ventricular systolic function is mildly reduced. Left Atrium: The left atrium is severely dilated. IAS: Small left to right shunt across the interatrial septum noted with color flow Doppler. Right Atrium: The right atrium is severely dilated. Mitral Valve: Moderate mitral regurgitation. No mitral valve stenosis. There is mild mitral thickening. Aortic Valve: Aortic leaflets exhibit normal cuspal separation. No aortic valve regurgitation. There is no aortic stenosis. Tricuspid Valve: Tricuspid valve leaflets are normal in appearance and function. Moderate tricuspid regurgitation. No tricuspid valve stenosis. Right Ventricular systolic pressure is measured at 59 mmHg. Pulmonary artery pressure moderately increased. Pulmonic Valve: Pulmonic leaflets exhibit normal cuspal separation. Moderate pulmonic valve regurgitation is present. There is no pulmonic valve stenosis. Aorta: The aortic root size in 2D measures 3.9 cm. The aortic root exhibits upper limit of normal size. The ascending aorta measures 3.6 cm. Ascending aorta is normal in size. Aorta Measurements AoRoot, 2D is 3.9 cm. IVC: The inferior vena cava is dilated. The respirophasic change in diameter is less than 50%. Patient: KATIE TAVERAS Study Date: 08/05/2018 Page 2 of 3 08:04 AM Pericardium: No pericardial effusion. No pleural effusion present. Exam Details Procedure Ordered: Echo Procedure Status: Routine study Image Quality: Adequate Facility Location: Cardiac Echo 1 (No Signature Object) Wall Motion Scores -1 - Not Scored, 0 - Unknown, 1 - Normal or hyperkinesia, 2 - Hypokinesia, 3 - Akinesia, 4 - Dyskinesia, 5 - Aneurysm Patient: KATIE TAVERAS Study Date: 08/05/2018 Page 3 of 3 08:04 AM [id number]
--- NOTE | 2018-08-05 15:26 | PDCARPN ---
Cardiology Progress Note Chief Complaint: Progressive shortness or breath and weakness with fatigue Assessment/Plan: Assessment: Patient is a 73 y/o male, well known to [facility] with recent outpatient follow up in early July 2018, with history of CAD s/p CABG (2017), ischaemic CMP (EF of ~25% in the past), history of PCI (mLAD and ramus in 2007) , HTN, HLP, and PVD (carotids), who presented to [facility] with complaints of fatigue. This symptom has been noted most dramatically with walking his dog. When the patient was last seen in the office (July 11, 2018), he had not cardiovascular complaints, but over the past four weeks, there has been progressive fatigue with less activity. The patient has not noted any chest pains or pressure (but did not reportedly note these symptoms prior to CABG). Home nurse with concerns about the patient's voiced symptoms. At rest, without activity, the patient has no symptoms. CXR in the ER with pulmonary edema noted. No cardiac biomarker elevation was noted, but BNP was greater than 12, 000. Mild renal dysfunction was also noted (creatinine of 1.4). Echocardiography was performed with this admission, and further reduction in systolic function is noted (10-15%) with what appears to be LV apical thrombus. Plan: (1) Would maintain therapy on ASA given the CAD/CABG/PCI history that the patient has (2) Lisinopril and metoprolol should continue - would consider change from "metoprolol" to coreg given the systolic LV dysfunction noted (3) Lasix to be continued (4) Would being lovenox therapy for anticoagulation in light of the LV thrombus that was noted by echo (5) Consider angiography in light of the newly appreciated reduction in systolic function that has been noted - invasive testing over non invasive testing with "new" heart failure symptoms (6) Cardiology will continue to follow this patient Subjective: Patient feeling well today, but concerned about his progressive dyspnea Objective: Intake/Output (24 Hrs) 08/04/18 08/05/18 08/06/18 05:59 05:59 05:59 Other: Output Comment Toilet pt reminded to use urinal for accurate I&O Number of Voids Toilet 2 Result Diagrams: 08/05/18 04:00 08/05/18 04:00 EKG: Sinus rhythm with LBBB pattern Telemetry: sinus rhythm with BBB pattern Echocardiogram: severe reduction in LVEF (10-15%) this being further reduced from prior echo in July 2017 (at 25-30%). There also appears to be LV thrombus in today's echo. Mod MR, TR, and PI with RVSP to 50-55 mm Hg - Physical Exam Constitutional: WDWN, healthy appearing, no apparent distress Eyes: PERRL, EOMI Ears, Nose, Mouth, Throat: moist mucous membranes Cardiovascular: regular rate and rhythm, systolic murmur, jugular vein distention, pulses symmetric bilat Peripheral Pulses: 2+: dorsalis-pedis (R), dorsalis-pedis (L) Respiratory: clear to auscultate bilat, no crackles, no wheezes, reduced air movement (to the bases) Gastrointestinal: normoactive bowel sounds Skin: no rashes, no edema Musculoskeletal: no muscular tenderness Neurologic: AAOx3, CN II-XII grossly intact Psychiatric: cooperative, interactive, following commands ICD10 Worksheet Patient Problems: Problems Problem Status Onset Dyspnea Acute Unstable angina Acute CAD (coronary artery disease) Acute Postoperative atrial fibrillation Acute S/P CABG x 3 Acute chronic disease mgmt/transitional care Acute Osteoarthritis of knee Chronic
--- NOTE | 2018-08-05 15:51 | ASMTCMCOM ---
CM Note CM Note Notes: 08/05/2018 Case Management Note Discussed pt during rounds this morning. Phone call to DARELL Alberto with [facility]. Faxed updates via [employer]. Case Management d/c poc: Home resuming [facility] Case Management to follow. Date Signed: 08/05/2018 03:50 PM Electronically Signed By:Yara Aguilar RN
--- NOTE | 2018-08-05 15:53 | HOSPPROG ---
Hospitalist Progress Note Assessment/Plan: #CHF-systolic with exacerbation -TTE c/w LVEF 10-15% -cont Lasix -cont Metoprolol -holding Lisinopril currently due to DEMETRIUS -consider cardiac cath given reduction of function #LV [place] Thrombus -Start AC. Lovenox per Cardiology #CAD with Hx of CABG in May 2017 #DEMETRIUS -monitor closely DNR: confirmed on admission cont inpatient Subjective: no cp or sob. no n/v. feels better overall Objective: Vital Signs Temp Pulse Resp BP Pulse Ox 36.6 C 60 15 106/77 94 08/05/18 15:28 08/05/18 15:28 08/05/18 15:28 08/05/18 15:28 08/05/18 15:28 - Physical Exam Constitutional: no apparent distress Eyes: PERRL Ears, Nose, Mouth, Throat: moist mucous membranes, hearing normal Cardiovascular: regular rate and rhythym, No edema Respiratory: no respiratory distress, no rales or rhonchi, clear to auscultation Gastrointestinal: normoactive bowel sounds, soft, non-tender abdomen Skin: warm Neurologic: AAOx3 Psychiatric: interacting appropriately, not anxious, not encephalopathic Lymph, Heme, Immunologic: No petechiae ICD10 Worksheet Patient Problems: Problems Problem Status Onset Dyspnea Acute Unstable angina Acute CAD (coronary artery disease) Acute Postoperative atrial fibrillation Acute S/P CABG x 3 Acute chronic disease mgmt/transitional care Acute Osteoarthritis of knee Chronic
--- NOTE | 2018-08-05 16:21 | PDMN ---
Medical Necessity Medical necessity: Change to IP, as of 08/05/18, per MD & MCG M-190; los >2 mn for ongoing management of CHF exacerbation w/DEMETRIUS, progressive dyspnea & LV apical thrombus; requiring further monitoring, Cardiology consult & med management; comorbid advanced age, CAD, CABG
[2018-08-05] MEDS: ESCITALOPRAM OXALATE 10 MG TAB PO SCH (19:41)
[2018-08-05] MEDS: ATORVASTATIN CALCIUM 40 MG TAB PO SCH (19:41)
[2018-08-05] MEDS ORDERED: METOPROLOL TARTRATE 25 MG TAB PO SCH (21:00)
[2018-08-05] MEDS: ENOXAPARIN 100 MG/ML SYR SC SCH (21:15)
[2018-08-06] MEDS: LEVOTHYROXINE 75 MCG TAB PO SCH (05:43)
[2018-08-06] MEDS: CARVEDILOL 3.125 MG TAB PO SCH ×2 (08:38→18:18)
[2018-08-06] MEDS: ENOXAPARIN 100 MG/ML SYR SC SCH ×2 (08:41→20:31)
[2018-08-06] MEDS: buPROPion SR 150 MG TAB PO SCH (08:41)
[2018-08-06] MEDS: ASPIRIN EC 81 MG TAB PO SCH (08:41)
[2018-08-06] MEDS: Mirabegron [Myrbetriq] 25 MG PO SCH (08:47)
--- NOTE | 2018-08-06 10:11 | PDCARPN ---
Cardiology Progress Note Assessment/Plan: Assessment: 1. Ischemic cardiomyopathy, status post CABG, LV ejection fraction 15% 2. 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 Renal insufficiency 4. NYHA class 2-3 symptoms, systolic heart failure Plan: 1. Continue on full-dose Lovenox for LV apical thrombus 2. Continue beta-blockers and Petar inhibitors. Patient was not on diuretics, has been started today. 3. Has ruled out for myocardial infarction. Reports no angina. Discussed with patient's outpatient railroad car cleaning supervisor Dr. Jose Cancino, we will hold off on coronary angiography for now 4. Recommend biventricular ICD given left bundle-branch block, left ventricular ejection fraction 15% and NYHA class 2-3 symptoms. Discussed with patient's that about 2/3 of patients see symptomatic improvement in the heart failure symptoms with biventricular pacing. Risks of transvenous ICD implantation including but not limited to , myocardial infarction, stroke, cardiac tamponade which may require emergent cardiac surgery, infection, bleeding, pneumothorax, lead dislodgement and risks of sedation/anesthesia were discussed. In case of coronary sinus lead placement, there is some risk of anaphylaxis/renal failure related to iodine contrast, higher risk of lead dislodgement and phrenic nerve stimulation. Long-term issues like ICD pocket erosion, lead failure, venous stenosis, superior vena cava syndrome, need for lead extraction were discussed. Need for close long-term follow-up in our device clinic was emphasized. Need for generator change was discussed. We discussed that appropriate and inappropriate ICD shocks can occur. The risk of inappropriate ICD shocks is higher in patients with atrial fibrillation. Have discussed this with Dr. Jose Cancino is patient's outpatient railroad car cleaning supervisor who is in agreement. Will tentatively schedule for Wednesday or later this week based on available schedules. May consider waiting given recent diagnosis of LV thrombus. 08/06/18 10:07 Subjective: Admitted with progressive fatigue and exertional intolerance. Reviewed/Discussed With: multidisciplinary team, other (Patient's outpatient railroad car cleaning supervisor Dr. Jose Cancino) Time Spent with Patient: greater than 25 minutes Time Spent with Patient: Greater than 25 minutes spent on this patients care, greater than 50% of time spent counseling, educating, and coordinating care regarding the above mentioned plan. Objective: Vital Signs (8 Hrs) Temp Pulse Resp BP Pulse Ox 08/06/18 08:00 36.7 C 58 L 18 134/71 H 92 08/06/18 03:26 36.8 C 50 L 16 132/75 H 95 Intake/Output (24 Hrs) 08/04/18 08/05/18 08/06/18 11:59 11:59 11:59 Intake Total 425 Output Total 775 Balance -350 Intake: Oral (ml) 425 Output: Urine (ml) 775 Urinal 775 Other: Weight 79.5 kg Output Comment Toilet pt reminded to use urinal for accurate I&O Number of Voids Toilet 2 Result Diagrams: 08/05/18 04:00 08/06/18 03:26 EKG: Sinus bradycardia, first-degree heart block, left bundle-branch block Telemetry: Sinus rhythm ICD10 Worksheet Patient Problems: Problems Problem Status Onset Unstable angina Acute Dyspnea Acute Postoperative atrial fibrillation Acute S/P CABG x 3 Acute CAD (coronary artery disease) Acute chronic disease mgmt/transitional care Acute Osteoarthritis of knee Chronic
[2018-08-06] MEDS: FUROSEMIDE 40 MG TAB PO SCH (11:03)
[2018-08-06] MEDS ORDERED: LACTULOSE 20 GM/30 ML UDCUP PO PRN (13:56)
[2018-08-06] MEDS ORDERED: MAGNESIUM HYDROXIDE 30 ML UDCUP PO PRN (13:56)
[2018-08-06] MEDS ORDERED: BISACODYL 10 MG SUPP PR PRN (13:56)
[2018-08-06] MEDS ORDERED: POLYETHYLENE GLYCOL 3350 17 GM PKT PO PRN (13:56)
--- NOTE | 2018-08-06 14:15 | HOSPPROG ---
Hospitalist Progress Note Assessment/Plan: #acute systolic HF - EF 10-15% on echo -resume Lasix, monitor I&O's, daily weights -cont Metoprolol -holding Lisinopril currently due to DEMETRIUS, resume when Cr improved -reviewed cards recs, will likely undergo bi-ventricular AICD this hospitalization #LV Thrombus - Cont Lovenox #CAD with Hx of CABG in May 2017 -cont asa, statin, BB #DEMETRIUS - holding barry DNR: confirmed on admission cont inpatient Subjective: Pt feels ok. Denies CP or SOB. No fevers/chills. taking po well. Good uop Objective: Vital Signs Temp Pulse Resp BP Pulse Ox 36.6 C 56 L 18 119/62 94 08/06/18 11:50 08/06/18 11:50 08/06/18 11:50 08/06/18 11:50 08/06/18 11:50 Laboratory Results 08/06/18 03:26 08/05/18 08/06/18 08/07/18 05:59 05:59 05:59 Intake Total 425 Output Total 775 Balance -350 - Physical Exam Constitutional: no apparent distress Eyes: PERRL Ears, Nose, Mouth, Throat: moist mucous membranes Cardiovascular: regular rate and rhythym Respiratory: no respiratory distress, clear to auscultation Gastrointestinal: normoactive bowel sounds, soft, non-tender abdomen Skin: warm Musculoskeletal: full muscle strength Neurologic: AAOx3 Psychiatric: interacting appropriately ICD10 Worksheet Patient Problems: Problems Problem Status Onset Dyspnea Acute Unstable angina Acute CAD (coronary artery disease) Acute Postoperative atrial fibrillation Acute S/P CABG x 3 Acute chronic disease mgmt/transitional care Acute Osteoarthritis of knee Chronic
[2018-08-06] MEDS: ATORVASTATIN CALCIUM 40 MG TAB PO SCH (20:30)
[2018-08-06] MEDS: SENNOSIDES/DOCUSATE SODIUM TAB PO SCH (20:31)
[2018-08-06] MEDS: ESCITALOPRAM OXALATE 10 MG TAB PO SCH (20:31)
[2018-08-07] MEDS: LEVOTHYROXINE 75 MCG TAB PO SCH (06:30)
--- NOTE | 2018-08-07 08:42 | PDCARPN ---
Cardiology Progress Note Assessment/Plan: Assessment: 1. Ischemic cardiomyopathy, status post CABG, LV ejection fraction 15% 2. LV apical thrombus, likely endothelialized 3. Renal insufficiency , improved, Cr 1.3 4. NYHA class 2-3 symptoms, systolic heart failure Plan: 1. Last dose of lovenox this PM. Hold tomorrow AM for AICD. Post procedure will hold OAC x 24 h, then start Eliquis 2. BiVICD with SJM tomorrow at 1 PM. Risks reviewed with patient yesterday. All his ? were answered. 08/07/18 08:41 Subjective: feels well today. Reviewed/Discussed With: multidisciplinary team Time Spent with Patient: greater than 25 minutes Time Spent with Patient: Greater than 25 minutes spent on this patients care, greater than 50% of time spent counseling, educating, and coordinating care regarding the above mentioned plan. Objective: Vital Signs (8 Hrs) Temp Pulse Resp BP Pulse Ox 08/07/18 08:00 36.4 C 63 15 150/89 H 97 08/07/18 04:00 36.7 C 74 20 143/70 H 96 Intake/Output (24 Hrs) 08/05/18 08/06/18 08/07/18 11:59 11:59 11:59 Intake Total 425 1050 Output Total 775 1070 Balance -350 -20 Intake: Oral (ml) 425 1050 Output: Urine (ml) 775 1070 Urinal 775 1070 Other: Weight 79.5 kg 78.9 kg Output Comment Toilet pt reminded to use urinal for accurate I&O Number of Voids Toilet 2 Urinal 1 Result Diagrams: 08/05/18 04:00 08/07/18 03:38 Telemetry: nsr ICD10 Worksheet Patient Problems: Problems Problem Status Onset Unstable angina Acute Dyspnea Acute Postoperative atrial fibrillation Acute S/P CABG x 3 Acute CAD (coronary artery disease) Acute chronic disease mgmt/transitional care Acute Osteoarthritis of knee Chronic
[2018-08-07] MEDS: CARVEDILOL 3.125 MG TAB PO SCH ×2 (09:36→18:32)
[2018-08-07] MEDS: FUROSEMIDE 40 MG TAB PO SCH (09:36)
[2018-08-07] MEDS: buPROPion SR 150 MG TAB PO SCH (09:36)
[2018-08-07] MEDS: LISINOPRIL 5 MG TAB PO SCH (09:36)
[2018-08-07] MEDS: ASPIRIN EC 81 MG TAB PO SCH (09:36)
[2018-08-07] MEDS: SENNOSIDES/DOCUSATE SODIUM TAB PO SCH ×3 (09:37→21:13)
[2018-08-07] MEDS: Mirabegron [Myrbetriq] 25 MG PO SCH (09:41)
--- NOTE | 2018-08-07 14:41 | HOSPPROG ---
Hospitalist Progress Note Assessment/Plan: #acute systolic HF - EF 10-15% on echo -cont Lasix, monitor I&O's, daily weights -cont Metoprolol -resume Lisinopril -cardiology planning for bi-V AICD tomorrow #LV Thrombus - Cont Lovenox, hold in am prior to procedure -per cards, will start oral AC 24 hrs post-procedure #CAD with Hx of CABG in May 2017 -cont asa, statin, BB #DEMETRIUS - Cr better today DNR: confirmed on admission cont inpatient Subjective: Pt doing well. No complaints. Denies CP or SOB. Objective: Vital Signs Temp Pulse Resp BP Pulse Ox 36.5 C 57 L 14 126/71 H 97 08/07/18 11:19 08/07/18 11:19 08/07/18 11:19 08/07/18 11:19 08/07/18 11:19 Laboratory Results 08/07/18 03:38 08/06/18 08/07/18 08/08/18 05:59 05:59 05:59 Intake Total 425 1050 Output Total 775 1070 Balance -350 -20 - Physical Exam Constitutional: no apparent distress Eyes: PERRL Ears, Nose, Mouth, Throat: moist mucous membranes Cardiovascular: regular rate and rhythym Respiratory: no respiratory distress, clear to auscultation Gastrointestinal: normoactive bowel sounds, soft, non-tender abdomen Skin: warm Musculoskeletal: full muscle strength Neurologic: AAOx3 Psychiatric: interacting appropriately ICD10 Worksheet Patient Problems: Problems Problem Status Onset Dyspnea Acute Unstable angina Acute CAD (coronary artery disease) Acute Postoperative atrial fibrillation Acute S/P CABG x 3 Acute chronic disease mgmt/transitional care Acute Osteoarthritis of knee Chronic
[2018-08-07] MEDS ORDERED: ENOXAPARIN 100 MG/ML SYR SC ONE (21:00)
[2018-08-07] MEDS: ATORVASTATIN CALCIUM 40 MG TAB PO SCH (21:07)
[2018-08-07] MEDS: ESCITALOPRAM OXALATE 10 MG TAB PO SCH (21:07)
[2018-08-08 04:33] LABS: PLATELET COUNT 141 10^3/uL (150-400)
[2018-08-08 04:41] LABS: INR 1.11 (0.83-1.16); PROTIME(PATIENT) 13.9 SEC (12.0-15.0)
[2018-08-08] MEDS ORDERED: BACITRACIN IRRIGATION/NS 50,000 UNITS/1,000 ML BTL IRR ONE (06:00)
[2018-08-08] MEDS ORDERED: ceFAZolin 2 GM/DEXTROSE 100 ML IV ONE (06:00)
[2018-08-08] MEDS: LEVOTHYROXINE 75 MCG TAB PO SCH (06:36)
[2018-08-08] MEDS: ASPIRIN EC 81 MG TAB PO SCH (08:27)
[2018-08-08] MEDS: buPROPion SR 150 MG TAB PO SCH (08:27)
[2018-08-08] MEDS: CARVEDILOL 3.125 MG TAB PO SCH ×2 (08:27→17:42)
[2018-08-08] MEDS: FUROSEMIDE 40 MG TAB PO SCH (08:27)
[2018-08-08] MEDS: LISINOPRIL 5 MG TAB PO SCH (08:27)
[2018-08-08] MEDS: SENNOSIDES/DOCUSATE SODIUM TAB PO SCH ×2 (09:08→19:57)
--- NOTE | 2018-08-08 11:33 | PDCARPN ---
Cardiology Progress Note Chief Complaint: ICM Assessment/Plan: Assessment: 1. Ischemic cardiomyopathy: s/p CABG, LVEF 15% 2. 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 Renal insufficiency: Cr 1.2 today 4. Systolic congestive heart failure: NYHA Class II-III symptoms Plan: 1. Plan for implant of biventricular ICD as planned for today 2. Start Eliquis 24hrs post-procedure 08/08/18 11:34 Subjective: No issues overnight, no concerns regarding upcoming procedure, patient reports feeling much better overall Objective: Vital Signs (8 Hrs) Temp Pulse Resp BP Pulse Ox 08/08/18 08:00 36.2 C 61 10 L 144/83 H 96 08/08/18 04:00 36.3 C 62 18 140/74 H 99 Intake/Output (24 Hrs) 08/07/18 08/08/18 08/09/18 05:59 05:59 05:59 Intake Total 1050 760 Output Total 1070 975 Balance -20 -215 Intake: Oral (ml) 1050 760 Output: Urine (ml) 1070 975 Urinal 1070 975 Other: Weight 78.9 kg 77.882 kg Number of Voids Urinal 1 2 Result Diagrams: 08/08/18 04:02 08/08/18 04:02 - Physical Exam Constitutional: WDWN, healthy appearing, no apparent distress Ears, Nose, Mouth, Throat: moist mucous membranes, no oral ulcers, no thrush Peripheral Pulses: 2+: dorsalis-pedis (R), dorsalis-pedis (L) Neurologic: AAOx3, CN II-XII grossly intact Psychiatric: cooperative, interactive, following commands, not anxious ICD10 Worksheet Patient Problems: Problems Problem Status Onset Dyspnea Acute Unstable angina Acute CAD (coronary artery disease) Acute Postoperative atrial fibrillation Acute S/P CABG x 3 Acute chronic disease mgmt/transitional care Acute Osteoarthritis of knee Chronic
--- NOTE | 2018-08-08 11:38 | PDGENHP ---
History & Physical Chief Complaint: Ischemic cardiomyopathy History of Present Illness: Systolic CHF with NYHA class 2-3 symptoms, ischemic cardiomyopathy with LVEF 15% Relevant Physical Exam: General: A&Ox4, no apparent distress. Respiratory: CTA. Cardiac: Regular rate and rhythm Cardiorespiratory Assessment: Proceed with implant of BiV ICD today as planned. Start Eliquis 24hrs post-procedure
--- NOTE | 2018-08-08 12:49 | PDANEPAE ---
ANE History of Present Illness EF of 10-15% s/f BiV ICD ANE Past Medical History - Cardiovascular History Hx Hypertension: Yes Hx Arrhythmias: No Hx Chest Pain: No Hx Coronary Artery / Peripheral Vascular Disease: Yes Hx CHF / Valvular Disease: No Hx Palpitations: No Cardiovascular History Comment: HYPERLIPIDEMIA. CARDIAC STENTS. cardiac arrest 04/2007 - Pulmonary History Hx COPD: No Hx Asthma/Reactive Airway Disease: No Hx Recent Upper Respiratory Infection: No Hx Oxygen in Use at Home: No Hx Sleep Apnea: Yes - Neurologic History Hx Cerebrovascular Accident: No Hx Seizures: No Hx Dementia: No - Endocrine History Hx Diabetes: No Endocrine History Comment: HYPOTHYROID - Renal History Hx Renal Disorders: Yes Renal History Comment: URINARY DRIBBLING - Liver History Hx Hepatic Disorders: No - Neurological & Psychiatric Hx Hx Neurological and Psychiatric Disorders: Yes Neurological / Psychiatric History Comment: DEPRESSION - Cancer History Hx Cancer: No - Congenital Disorder History Hx Congenital Disorders: No - GI History Hx Gastrointestinal Disorders: No - Other Health History Other Health History: NEG - Chronic Pain History Chronic Pain: No (left knee) - Surgical History Prior Surgeries: right tka with dr pro 08/08/14. CARDIAC STENTS 2006, 2007. FX. LEG ANE Review of Systems Review of Systems: - Exercise capacity Exercise capacity: <4 METS ANE Patient History - Allergies Allergies/Adverse Reactions: No Known Allergies Allergy (Unverified 11/27/12 18:46) - Home Medications Home medications: home medication list seen and reviewed Home Medications: Levothyroxine [Synthroid 75 mcg (*)] 75 mcg PO DAILY06 07/22/15 [Last Taken ] Atorvastatin Calcium [Lipitor 40 mg (*)] 40 mg PO HS 09/21/17 [Last Taken ] Escitalopram Oxalate [Lexapro] 20 mg PO HS 09/21/17 [Last Taken 09/20/17] buPROPion SR [Wellbutrin 150mg SR (*)] 150 mg PO DAILY 09/21/17 [Last Taken ] Acetaminophen [Tylenol 325mg (*)] 325 mg PO Q4HRS PRN 08/04/18 [Last Taken Unknown] Aspirin EC [Aspirin EC 81 mg (*)] 81 mg PO DAILY 08/04/18 [Last Taken Unknown] Furosemide [Furosemide] 10 mg PO DAILY 08/04/18 [Last Taken Unknown] Lisinopril [Zestril 5 mg (*)] 5 mg PO DAILY 08/04/18 [Last Taken Unknown] Mirabegron [Myrbetriq] 25 mg PO DAILY 08/04/18 [Last Taken Unknown] - NPO status NPO Status: no food or drink >8 hours - Anes Hx Anes Hx: no prior problems - Smoking Hx Smoking Status: Never smoked - Alcohol Use Alcohol Use: None - Family Anes Hx Family Anes Hx: none Family Hx Anesthesia Complications: NEG ANE Labs/Vital Signs - Labs Result Diagrams: 08/08/18 04:02 08/08/18 04:02 - Vital Signs Blood Pressure: 131/86 Heart Rate: 62 Respiratory Rate: 19 O2 Sat (%): 92 Height: 182.88 cm Weight: 77.882 kg ANE Physical Exam - Airway Neck exam: decreased ROM Mallampati Score: Class 2 Mouth exam: poor dentition - Pulmonary Pulmonary: rhonchi - Cardiovascular Cardiovascular: regular rate and rhythym - ASA Status ASA Status: IV ANE Anesthesia Plan Anesthesia Plan: GA with mask Total IV Anesthesia: Yes
[2018-08-08] MEDS ORDERED: LIDOCAINE 1% 300 MG/30 ML SDV ONE (12:54)
[2018-08-08] MEDS ORDERED: BUPIVACAINE 0.75% 10 ML SDV ONE (12:55)
[2018-08-08] MEDS ORDERED: IOPAMIDOL (ISOVUE-300) 100 ML BTL ONE ×2 (12:55→14:35)
[2018-08-08] MEDS ORDERED: PROPOFOL/EMULSION 500 MG/50 ML BOTTLE IV ONE ×2 (13:16→14:24)
[2018-08-08] MEDS ORDERED: REMIFENTANIL HCL 1 MG VIAL ONE (13:16)
[2018-08-08] MEDS ORDERED: ePHEDrine SULFATE 25 MG/5 ML SYR ONE ×2 (13:43→14:25)
--- NOTE | 2018-08-08 15:14 | HOSPPROG ---
Hospitalist Progress Note Assessment/Plan: #acute systolic HF - EF 10-15% on echo -bi-V AICD today -cont Lasix, monitor I&O's, daily weights -cont Metoprolol, Lisinopril #LV Thrombus -Lovenox held this am for procedure -per cards, will start oral AC 24 hrs post-procedure #CAD with Hx of CABG in May 2017 -cont asa, statin, BB #DEMETRIUS - Cr better today DNR: confirmed on admission cont inpatient, possible dc in am if stable. Subjective: Pt feels well. No complaints post-procedure. Objective: Vital Signs Temp Pulse Resp BP Pulse Ox 36.4 C 62 19 131/86 H 92 08/08/18 11:31 08/08/18 12:49 08/08/18 12:49 08/08/18 12:49 08/08/18 12:49 Laboratory Results 08/08/18 04:02 08/08/18 04:02 08/07/18 08/08/18 08/09/18 05:59 05:59 05:59 Intake Total 1050 760 Output Total 1070 975 625 Balance -20 -215 -625 PT 13.9 SEC (12.0-15.0) 08/08/18 04:02 INR 1.11 (0.83-1.16) 08/08/18 04:02 - Physical Exam Constitutional: no apparent distress Eyes: PERRL Ears, Nose, Mouth, Throat: moist mucous membranes Cardiovascular: regular rate and rhythym Respiratory: no respiratory distress Gastrointestinal: normoactive bowel sounds, soft, non-tender abdomen Skin: warm Neurologic: AAOx3 Psychiatric: interacting appropriately ICD10 Worksheet Patient Problems: Problems Problem Status Onset Dyspnea Acute Unstable angina Acute CAD (coronary artery disease) Acute Postoperative atrial fibrillation Acute S/P CABG x 3 Acute chronic disease mgmt/transitional care Acute Osteoarthritis of knee Chronic
[2018-08-08] MEDS ORDERED: ACETAMINOPHEN 325 MG TAB PO PRN (15:36)
--- NOTE | 2018-08-08 15:52 | EPPROC ---
Electrophysiology Procedure Note: PROCEDURE PERFORMED: 1. Implantation of an A-BiV Implantable Cardioverter Defibrillator 2. Subclavian vein angiography 3. Fluoroscopy 4. EP study induction of ventricular fibrillation and defibrillation testing INDICATION: LBBB Ischemic CMP NYHA Class III PROCEDURE NOTE: Patient presented to the cardiac catherization laboratory in a fasting, post absorptive state. Dr. Harsh Hernandez administered sedation. The L infraclavicular area was prepped and draped in the usual sterile fashion. Lidocaine plus bupivacaine was used for local anesthesia. L subclavian venography was performed by injection of iodinated contrast into the L antecubital vein. This was done to assure patency of the vein and also to assess for any anatomical aberrations. Using a combination of blunt and sharp dissection and electrocautery, the dissection was carried down to the prepectoral fascia. A pocket was made in this anatomical plane. All bleeding was controlled with electrocautery. The pocket was packed with gauze soaked in antibiotic solution. Fluoroscopy was utilized during the entire procedure for venous access and placement of the leads Using a direct stick technique the L extra thoracic axillary vein was accessed with 3 sticks using the modified Seldinger technique. Placement of the guide wires into the venous system was confirmed by low pressure blood return and also by visualizing the guide wires advancing into the inferior vena cava. A purse string suture was applied around the guide wires. Two #7 Slovenian sheaths were advanced under fluoroscopic guidance over the guide wires. An active fixation ventricular ICD lead was advanced into the right ventricular apex and screwed in place. An active fixation atrial lead was advanced into the right atrial appendage and screwed in place. The peel away sheaths were removed. Pacing thresholds, sensing parameters and lead impedances were measured. There was no diaphragmatic stimulation at maximum output. The leads were sutured to the prepectoral fascia with 3 nonabsorbable sutures. A 9 Slovenian sheath was advanced over the guide wire into the subclavian vein. Using a Codefast delivery system the coronary sinus ostium was engaged. Access to CS ostium was difficult due to scarred ostium and thebesian valve and required AL2 catheter. Occlusion retrograde coronary sinus angiography was performed in three views. A coronary sinus quadrapolar lead was advanced into the coronary sinus. An angioplasty wire was advanced through the lead and advanced into the mid portion of the lateral branch of the coronary sinus. The lead was advanced over the angioplasty wire. Pacing threshold, sensing and impedance was determined. There was no diaphragmatic stimulation at maximum output. The delivery system and the 9 Fr sheath were peeled away. Again, pacing threshold, sensing and impedance was determined. There was no diaphragmatic stimulation at maximum output. The CS lead was secured to the prepectoral fascia with 3 nonabsorbable sutures. Pacing threshold and sensing parameters of the RA, RV and LV leads were checked again. The gauze packing was removed from the ICD pocket. The pocket was again inspected for any bleeding. The leads were attached to the pacemaker securely. The ICD was inserted into the pocket and secured in place with a nonabsorbable suture. Fluoroscopy was performed in GONZALEZ and KAZAKH planes to verify right sided placement of the leads. Also fluoroscopy of the pacemaker pocket was performed. Defibrillation threshold testing was not performed d/t LV thrombus The ICD pocket was closed in 3 layers with absorbable monocryl sutures and denis. Appropriate dressing was applied. The patient left the cardiac catheterization laboratory in stable condition. Defibrillation testing: Not done, LV thrombus Serial Numbers: 1. Device [facility] Quad[employer]ura STATISTICAL PROGRAMMER ANALYST-D [id number] 2. Atrial Lead M Tendril 2088 52 cm [id number] [id number] 3. Right Ventricular Lead SJM Durata 7122 Q -52 [id number] 4. Left Ventricular Lead SJM Quartet 1457 Q 75 cm [id number] Stimulation Thresholds & Impedance Measurements: 1. Atrial Lead P 3.4 Mv 0.7 v 0.5 MS 484 OHM 2. Right Ventricular Lead R 11.5 Mv 0.7 v 0.5 MS 607 OHM 3. Left Ventricular Lead R 35 mV 842 OHM 0.7 V 0.5 ms Boom Pacing Parameters: 1. Pacing mode DDDR 2. Lower rate 70 ppm 3. Upper cxal253 ppm Tachycardia therapy parameters: VF zone : Detection 200 bpm ATP, 40 J VT zone : Detection 170 bpm ATP x 3, 26 J, 40 J Patient Problems: Problems Problem Status Onset Unstable angina Acute Dyspnea Acute Postoperative atrial fibrillation Acute S/P CABG x 3 Acute CAD (coronary artery disease) Acute chronic disease mgmt/transitional care Acute Osteoarthritis of knee Chronic
--- NOTE | 2018-08-08 16:03 | ASMTCMCOM ---
CM Note CM Note Notes: Pts case discussed in tx rounds. Pt is getting a pacemaker placed today. Pt will resume w/ RN services through [facility]. Pt is observed walking independently without any difficulties. CM to follow. Plan: [facility]; RN Date Signed: 08/08/2018 03:17 PM Electronically Signed By:CONOR Larkin
--- NOTE | 2018-08-08 17:27 | CPEKG ---
Test Reason : OPEN Blood Pressure : / mmHG Vent. Rate : 060 BPM Atrial Rate : 060 BPM P-R Int : 269 ms QRS Dur : 183 ms QT Int : 535 ms P-R-T Axes : 021 -71 107 degrees QTc Int : 535 ms Sinus rhythm Prolonged MN interval Left bundle branch block Confirmed by Jose Cancino ([id number]) on 08/08/2018 5:27:16 PM Referred By: Robert Santiago Confirmed By:Jose Cancino
--- NOTE | 2018-08-08 17:33 | CPEKG ---
Test Reason : OPEN Blood Pressure : / mmHG Vent. Rate : 112 BPM Atrial Rate : 070 BPM P-R Int : 249 ms QRS Dur : 169 ms QT Int : 000 ms P-R-T Axes : 095 047 000 degrees QTc Int : 000 ms A-V dual-paced complexes w/ some inhibition Confirmed by Jose Cancino ([id number]) on 08/08/2018 5:32:41 PM Referred By: Robert Santiago Confirmed By:Jose Cancino
[2018-08-08] MEDS: ESCITALOPRAM OXALATE 10 MG TAB PO SCH (19:56)
[2018-08-08] MEDS: ATORVASTATIN CALCIUM 40 MG TAB PO SCH (19:56)
[2018-08-09 04:39] LABS: PLATELET COUNT 130 10^3/uL (150-400)
[2018-08-09] MEDS: LEVOTHYROXINE 75 MCG TAB PO SCH (05:50)
[2018-08-09] MEDS: LISINOPRIL 5 MG TAB PO SCH (09:35)
[2018-08-09] MEDS: ASPIRIN EC 81 MG TAB PO SCH (09:35)
[2018-08-09] MEDS: CARVEDILOL 3.125 MG TAB PO SCH (09:35)
[2018-08-09] MEDS: FUROSEMIDE 40 MG TAB PO SCH (09:35)
[2018-08-09] MEDS: buPROPion SR 150 MG TAB PO SCH (09:35)
[2018-08-09] MEDS: SENNOSIDES/DOCUSATE SODIUM TAB PO SCH (09:36)
--- NOTE | 2018-08-09 09:49 | POSTANESTH ---
Post Anesthetic Evaluation Cardiovascular Status: Normal, Stable Respiratory Status: Normal, Stable, Similar to Pre-op Cond., Tx Decrease in SpO2 Level of Consciousness/Mental Status: Can Participate in Eval, Mildly Sleepy, Arousable Pain Control: Adequate, Prn Tx Ordered Nausea/Vomiting Control: Adequate, Prn Tx Ordered Complications Possibly Related to Anesthesia: None Noted
--- NOTE | 2018-08-09 11:05 | PDCARPN ---
Cardiology Progress Note Chief Complaint: s/p implant of a BiV ICD Assessment/Plan: Assessment: 1. Ischemic cardiomyopathy: s/p CABG, LVEF 15% s/p BiV ICD implant yesterday 08/[address] Rodriguez 2. 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 Renal insufficiency: improved 4. Systolic congestive heart failure: NYHA Class II-III symptoms Plan: 1. Patient is appropriate and stable for discharge home today from a cardiovascular standpoint 2. Start Eliquis tomorrow morning 08/10 3. Follow-up with [facility] device clinic in 1 week 4. Follow-up with Dr. Rodriguez or Rickie in 1 month 5. Follow-up with Dr. Cancino within 4-6 weeks 6. No need to schedule nuclear imaging stress testing at this time 08/09/18 11:02 Subjective: No issues overnight, patient reports feeling quite well this morning without cardiovascular concerns. He feels much better overall since admission Reviewed/Discussed With: multidisciplinary team Objective: Vital Signs (8 Hrs) Temp Pulse Resp BP Pulse Ox 08/09/18 08:00 36.7 C 70 10 L 130/71 H 94 08/09/18 04:00 36.8 C 75 18 144/81 H 90 L Intake/Output (24 Hrs) 08/08/18 08/09/18 08/10/18 05:59 05:59 05:59 Intake Total 760 500 Output Total 975 2175 Balance -215 -1675 Intake: Oral (ml) 760 500 Output: Urine (ml) 975 2175 Urinal 975 2175 Other: Weight 77.882 kg 76.884 kg Number of Voids Urinal 2 2 Result Diagrams: 08/09/18 03:56 08/09/18 03:56 EKG: NSR with narrowed QRS compared to pre-procedure - Physical Exam Constitutional: WDWN, healthy appearing, no apparent distress Ears, Nose, Mouth, Throat: moist mucous membranes, no oral ulcers, no thrush Cardiovascular: regular rate and rhythm, no rubs, no gallops Respiratory: clear to auscultate bilat, no crackles, no wheezes Neurologic: AAOx3, CN II-XII grossly intact Psychiatric: cooperative, interactive, following commands, not anxious ICD10 Worksheet Patient Problems: Problems Problem Status Onset Cardiomyopathy Acute Dyspnea Acute Unstable angina Acute CAD (coronary artery disease) Acute Postoperative atrial fibrillation Acute S/P CABG x 3 Acute chronic disease mgmt/transitional care Acute Osteoarthritis of knee Chronic
[2018-08-09 11:39] VITALS: BP 132/74
--- NOTE | 2018-08-09 13:22 | PDIAF ---
- Diagnosis Diagnosis: systolic heart failure, ef 15%, s/p bi-V AICD Code Status: Do Not Resuscitate - Medication Management Discharge Medications: electronically signed and located in the Home Medication List. PICC Care - Routine: N/A - Orders Services needed: Home Care, Registered Nurse, Master Commissioning Manager Home Care Face to Face: I certify that this patient was under my care and that I had the required [id number] encounter meeting the encounter requirements on the discharge day. My findings support the fact that the patient is homebound as defined in Home Care Face to Face Continued: CMS Chapter 7 Medicare Benefits Manual 30.1.1 , The condition of the patient is such that there exists a normal inability to leave home and consequently, leaving home would require a considerable and taxing effort. Isolation Type: None Diet Recommendation: sodium restricted, cardiac -low fat low salt Diet Texture: Regular Texture Diet Additional Instructions: Start Eliquis 5mg twice daily tomorrow morning 08/10 Do not lift your arm above the level of your shoulder or put your arm behind your back for 4 weeks Do not lift more than 5 pounds, push, or pull with your arm for 4 weeks. Avoid strenuous upper body activity for 6 weeks Wear your sling to sleep at night for [address] after 48 hours Keep your incision clean and dry. You may shower in 48 hours - if your dressing becomes wet for any reason, please remove it and leave your incision open to air. Do not apply ointments, lotions, or powders to your incision It is normal to have bruising, tenderness, and soreness at your incision site. This should gradually improve each day You will have a follow-up visit with [facility] device clinic in 1 week. Your denis will be removed at that time Please plan to follow-up with your physician within 4 weeks post-procedure Please monitor your incision site daily for signs of infection (see below). Please note that it is critical to monitor for signs of infection and pocket erosion throughout your lifetime Please maintain regular follow-up with our device clinic for ongoing monitoring throughout your lifetime. Our device team will give you additional information about your monitoring schedule. It is important to keep these regular appointments to make sure your device is working properly Continue all medications as directed Before receiving any medical/dental treatment, be sure to tell your healthcare providers about your pacemaker/ICD You will receive an ID card for your device. Be sure to keep this card with you Avoid strong electromagnetic melendez (industrial power generators, magnetic screening at the airport, etc.) Your pacemaker/ICD will not be affected by grounded electrical equipment (microwaves, computers, appliances, etc.) Avoid direct impact to the site of your device Repetitive arm/chest motion will increase the chance of breaking your pacemaker lead Follow up with Dr. Rodriguez in 4 weeks Follow-up with Dr. Garcia in 1 month Monitor for Signs of Infection Signs of infection may include: Redness Streaking Draining Hot to the touch Increased swelling Unexplained fevers/chills Nausea/vomiting Pain that is getting worse instead of better Opening at the incision site - Follow Up Care Current Providers and Referrals: Ernesto Rodriguez MD [Medical Doctor] - (Follow-up with Dr. Rodriguez or Rickie in 1 month Follow-up with [facility] device clinic in 1 week) Jose Cancino MD [Medical Doctor] - (Follow-up with Dr. Cancino in 4-6 weeks)
--- NOTE | 2018-08-09 13:37 | ASMTLACE ---
LACE Length of stay for Answers: 4-6 days current admission Acuity / Level of Answers: Yes Care: Did the patient have an inpatient admission? Comorbidities - select Answers: Coronary Artery Disease all that apply Previous myocardial infarction Other Notes: HTN # of Emergency department Answers: 1-2 visits in the last 6 months Social determinants Answers: Mental health diagnosis (anxiety, depression, pers onality disorders, etc.) Score: 15 Date Signed: 08/09/2018 01:29 PM Electronically Signed By:CONOR Larkin
--- NOTE | 2018-08-09 13:39 | ASMTDCNOTE ---
Case Management Discharge Discharge Order Complete? Answers: Yes Patient to Obtain Answers: Independently Medications Transportation Arranged Answers: Family/Friends EMTALA Complete Answers: No Case Management Transport Answers: No Form Complete Faxed Final Orders Answers: Yes Agency/Facility Transfer Answers: Yes Report Printed & Faxed to Receiving Agency Family Notified Answers: No Discharge Comments Notes: Pts case discussed in tx rounds. Pt is being d/c'd today. DC orders sent to [facility]. Pts sister is coming to pick him up. CM available for changes. Plan: [facility]; RN, CALL CENTER NURSE Date Signed: 08/09/2018 01:32 PM Electronically Signed By:CONOR Larkin
--- NOTE | 2018-08-09 13:40 | ASDISCHSUM ---
Discharge Information Plan Status:Home with No Needs Medically Cleared to Leave: Discharge Date: D/C Disposition: ADT D/C Disposition:Home, Routine, Self-Care Projected Discharge Date:08/09/2018 11:00 AM Transportation at D/C: Discharge Delay Reason: Follow-Up Date:08/09/2018 11:00 AM Discharge Slot: Final Diagnosis: Placement Information Referral Type:*Home Health Care Services Referral ID:[id number] Provider Name:[facility] Address 1:[address] Phone Number: Address 2: Fax Number: City:[place] Selection Factors: State:[place] Patient Contact Information Contact Name:AYE Relationship:Sister Address: Home Phone: City:[facility] Phone: [facility] Code:[place] [address] Email: Financial Information Financial Class:Medicare Primary Plan Desc:MEDICARE INPATIENT Primary Plan Number:[id number] Secondary Plan Desc:MED[place] Secondary Plan Number:[id number] Assessment Information LACE LACE Length of stay for Answers: 4-6 days current admission Acuity / Level of Answers: Yes Care: Did the patient have an inpatient admission? Comorbidities - select Answers: Coronary Artery Disease all that apply Previous myocardial infarction Other Notes: HTN # of Emergency department Answers: 1-2 visits in the last 6 months Social determinants Answers: Mental health diagnosis (anxiety, depression, pers onality disorders, etc.) Score: 15 Date Signed: 08/09/2018 01:29 PM Electronically Signed By:CONOR Larkin [facility] CM Progress Note CM Note CM Note Notes: Patient presents t the ED at the prompting of his RN, Chiara Miller with [facility] and is admitted with symptoms for acute CHF. Patient has a history of stents and also had OHS in October,. He is followed by [facility] and usually sees SPENCER Giraldo. I have contacted Kristal at and informed her of plans for admission. Patient lives alone in [place] and tells me he has a good support system. Chiara, his nurse checks in with him frequently and they are "friends". Patient has a small dog, "Jensen" and he tells me that Chiara will be able to take care of Jensen while he is in the hospital. This CM has contacted Chiara to notify her of plans for admission. Chiara confirms that she will warp picker Jensen shortly and keep her as long as she needs. Chiara is availble prn for updates and discharge planning. CM to follow Date Signed: 08/04/2018 01:57 PM Electronically Signed By:Naomi Mobley RN [facility] Progress Note CM Note CM Note Notes: 08/05/2018 Case Management Note Discussed pt during rounds this morning. Phone call to DARELL Alberto with [facility]. Faxed updates via [employer]. Case Management d/c poc: Home resuming [facility] Case Management to follow. Date Signed: 08/05/2018 03:50 PM Electronically Signed By:Yara Aguilar RN [facility] CM Progress Note CM Note CM Note Notes: Pts case discussed in tx rounds. Pt is getting a pacemaker placed today. Pt will resume w/ RN services through [facility]. Pt is observed walking independently without any difficulties. CM to follow. Plan: Kelsey STERLING RN Date Signed: 08/08/2018 03:17 PM Electronically Signed By:CONOR Larkin Case Management Discharge Plan Note Case Management Discharge Discharge Order Complete? Answers: Yes Patient to Obtain Answers: Independently Medications Transportation Arranged Answers: Family/Friends EMTALA Complete Answers: No Case Management Transport Answers: No Form Complete Faxed Final Orders Answers: Yes Agency/Facility Transfer Answers: Yes Report Printed & Faxed to Receiving Agency Family Notified Answers: No Discharge Comments Notes: Pts case discussed in tx rounds. Pt is being d/c'd today. DC orders sent to [facility]. Pts sister is coming to pick him up. CM available for changes. Plan: [facility]; RN, CAREER ORIENTATION TEACHER Date Signed: 08/09/2018 01:32 PM Electronically Signed By:CONOR Larkin Intervention Information Intervention Type:*MUELLER-Signed Date of Service:08/05/2018 11:39 AM Patient Type:Observation Staff Member:Bambi Fields Hours: Discipline: Severity: Comment: Intervention Type:*IM-Signed Date of Service:08/09/2018 10:31 AM Patient Type:Inpatient Staff Member:Bambi Fields Hours: Discipline: Severity: Comment:
--- NOTE | 2018-08-09 14:42 | CPEKG ---
Test Reason : OPEN Blood Pressure : / mmHG Vent. Rate : 070 BPM Atrial Rate : 070 BPM P-R Int : 236 ms QRS Dur : 144 ms QT Int : 572 ms P-R-T Axes : 042 001 000 degrees QTc Int : 618 ms Atrial-sensed ventricular-paced complexes Confirmed by Jose Cancino ([id number]) on 08/09/2018 2:41:40 PM Referred By: Robert Santiago Confirmed By:Jose Cancino
--- NOTE | 2018-08-09 17:32 | GDS ---
[f rep st] DISCHARGE SUMMARY DISCHARGE DIAGNOSES: 1. Croau-gy-amvipwl systolic heart failure with an ejection fraction of 10% to 15%. 2. Status post biventricular automated implantable cardioverter-defibrillator placement. 3. Left ventricular thrombus. 4. Coronary artery disease with history of coronary artery bypass graft in May 2017. 5. Acute kidney injury, resolved. CONSULTANTS: 1. Dr. Triston Gomez, Cardiology. 2. Dr. Ernesto Rodriguez, Electrophysiology. PROCEDURES: Implantation of a biventricular automated implantable cardioverter-defibrillator on 2018, without complication. HISTORY OF DETAILS: Please see history and physical dated August 04, 2018. In brief, the patient is a 73-year-old male with a history of coronary artery disease, previous [place] and CABG, as well as hyperte nsion, who presented to the emergency department with dyspnea on exertion. His chest x-ray was consistent with pulmonary edema, and he was admitted to the hospital for further management of acute heart failure. HOSPITAL COURSE: Patient was admitted to the cardiac telemetry unit. Echocardiogram was obtained an d revealed an ejection fraction of 10% to 15% with severe global hypokinesis, mild left ventricular h ypertrophy, and grade 3 diastolic dysfunction. In addition, there appeared to be thrombus at the ape x of the left ventricle, as well as mild right ventricular dilation and severe biatrial dilation with moderate mitral regurgitation and moderate tricuspid regurgitation. His right ventricular systolic pressure was 55 to 60. There was no pericardial effusion. He was treated with IV Lasix and diuresed a total of 14 kg. He was evaluated by Cardiology and underwent implantation of biventricular AICD d evice given his low ejection fraction. With respect to his left ventricular thrombus, he was started on Lovenox. This was held perioperatively for implantation of his biventricular AICD. He is given a prescription for Eliquis at discharge and is instructed to start this on the morning of August 11. It was brought to my attention during his hospitalization that his sister has a history of factor V Leiden mutation. Although I suspect his left ventricular thrombus is related to his low ejection fr action, I did send a factor V Leiden mutation which is currently pending and I will ask his primary c are physician to follow up on this in the outpatient setting. On the day of discharge, patient feels well and he wishes discharge home. His vital signs are stable. Blood pressure 132/74, heart rate 7 3, respiratory rate 19. He is 93% on room air. DISPOSITION: Patient is discharged home in stable condition. FOLLOWUP: 1. Dr. Ernesto Rodriguez, Cardiology/Electrophysiology, in [address] Jose Cancino, Cardiology, in 1 month. 3. In addition, he should follow up in the Device Clinic in 1 week. ACTIVITY: He is given extensive activity restrictions from the Cardiology Service. DISCHARGE MEDICATIONS: Please see [facility] for completed outpatient medication list. New medications on discharge include: Eliquis 5 mg p.o. b.i.d., #60, no refills; Coreg 3.125 mg p.o. b.i.d., #60, no refills; Lasix 40 mg p.o. daily, #30, no refills. He will continue all other outpatient medications previously prescribed. Discontinued medications: Metoprolol is discontinued in favor of Coreg, Myrbetriq is discontinued, a nd Lasix dose is increased from 10 to 40 mg p.o. daily. /[id number]/MODL
[2018-08-09] MEDS ORDERED: APIXABAN 5 MG TAB PO SCH (21:00)
[2018-08-10] MEDS ORDERED: APIXABAN 5 MG TAB PO SCH (09:00)
== END 2018-08-09 16:00 | disposition home health service (06) | DRG 227 ==
LOC: EDUNIT# → F2W 16:55 → OBSVTOIN 08-05 13:55
PROVIDERS: ADMIT Family Medicine; ATTEND Family Medicine
PROC: 02HK3KZ Insertion of Defibrillator Lead into Right Ventricle, Percutaneous Approach (ICD-10-PCS; principal; 2018-08-08)
PROC: 02H63KZ Insertion of Defibrillator Lead into Right Atrium, Percutaneous Approach (ICD-10-PCS; principal; 2018-08-08)
PROC: 02HL3KZ Insertion of Defibrillator Lead into Left Ventricle, Percutaneous Approach (ICD-10-PCS; principal; 2018-08-08)
PROC: 0JH608Z Insertion of Defibrillator Generator into Chest Subcutaneous Tissue and Fascia, Open Approach (ICD-10-PCS; principal; 2018-08-08)
DX: I50.23 Acute on chronic systolic (congestive) heart failure (principal); N17.9 Acute kidney failure, unspecified; I51.3 Intracardiac thrombosis, not elsewhere classified; I25.10 Atherosclerotic heart disease of native coronary artery without angina pectoris; I34.0 Nonrheumatic mitral (valve) insufficiency; I36.1 Nonrheumatic tricuspid (valve) insufficiency; I25.5 Ischemic cardiomyopathy; I25.2 Old myocardial infarction; E78.00 Pure hypercholesterolemia, unspecified; N40.0 Benign prostatic hyperplasia without lower urinary tract symptoms; Z95.1 Presence of aortocoronary bypass graft; Z66 Do not resuscitate
CPT/HCPCS: 84484-ER; C1769; C1777; C1882; C1898; C1900; G0378; J0690; J1644; J1650; J1940; J2704; Q9967